=== PATIENT | male | born 1940 | race Caucasian/White ===

== ENCOUNTER 2018-04-29 18:34 | Inpatient (IN) | payer MEDICARE ==
[2018-04-29] MEDS ORDERED: NS 0.9% 1000 ML** 1,000 ML IV ONE (19:32)
--- OUTSIDE RECORDS SUMMARY | 2018-04-29 19:35 | XMS REPORT | Continuity of Care Document ---
:1940 External Reference #:[id number] Author Name Mary Jo Agarwal Care Team Providers Name Role Phone Ezra Velez MD Primary Care Physician Unavailable Payers Date Identification Numbers Payment Provider Subscriber Effective: 2009 Policy Number: [id number] Medicare Mateus Mccracken PayID: [id number] [address] [place] [address] Policy Number: [id number] [facility] Mateus Mccracken PayID: [id number] [address] [place] [address] Effective: 1989 Policy Number: [id number] [employer] Mateus Mccracken Expires: 2009 Group Number: [id number] [address] PayID: [id number] [place] [address] Advance Directives Description No Information Available Problems Date Description Provider Status Onset: 02/08/2008 Aneurysm of thoracic aorta Ezra Velez M.D.,FACHailey Active Onset: 02/08/2008 Impaired fasting glycaemia Ezra Velez M.D.,ZOHRAP Active Onset: 06/04/2016 Dyslipidemia Papa Serrano M.D. Active Note: 02/2015 - TC 203, HDL 66, LDL 125 TG 60 Onset: 09/05/2015 Carcinoma of prostate Papa Serrano M.D. Active Note: s/p prostatectomy Follows urology at [facility] Onset: 06/04/2016 Secondary erectile dysfunction Papa Serrano M.D. 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 Tobacco Use Start: Unknown End: Former Cigarette Smoker smoked for 35 years 1 1/2 Packs Daily Smoking Status Reviewed: 04/28/18 Former Cigarette Smoker smoked for 35 years 1 1/2 Packs Daily ETOH Use Currently consumes Red wine at night, alcohol 2 glasses Recreational Drug Use Denies Drug Use Tobacco Use Start: Unknown End: Patient is a former Unknown smoker Exercise Type/Frequency Exercises regularly 3-4/wk at gym Allergies, Adverse Reactions, Alerts Date Description Reaction Status Severity Comments 12/29/2006 Penicillin Active rash Medications Medication Date Status Form Strength Qnty SIG Indications Ordering Provider Aspirin Active Tablets 325mg 1 tab as Papa 017 needed [place], for pain M.D. Aleve Active 220mg 1 Unknown 000 po daily Am No Active Hx Unknown Medications 017 - 017 Ibuprofen Hx Tablets 600mg 90tabs tid 724.2 Josse 010 - Pachikara, M.DLizzie 017 Zithromax Hx Solution 500mg 7units 1 qd x 7 466.0 Ezra 008 - Rec days Penny Velez, M.DLizzie,FACP 009 Hycodan Hx Syrup 5-1.5/5 200cc 5cc qid 466.0 Ezra 008 - prn cough Penny Velez, Angélica,FACP 009 Metamucil Hx Powder 48.57% qhs Ezra Jones 007 - Penny Velez, Texture M.DLizzie,FACP 017 Toprol XL Hx Tablets ER 50mg 90tabs 1 tablet Erza 000 - 24HR po qday Penny Velez, Angélica,FACP 017 Lovastatin 0 Hx Tablets 40mg 180tab 2 tablets Ezra 000 - s po qhs Penny Velez, Angélica,FACP 017 Lamisil Hx Tablets 250mg 42tabs PO every Ezra 000 - day Penny Velez, Angélica,FACP 007 Immunizations CPT Code Status Date Vaccine Lot # [id number] Given 12/17/2017 Influenza Virus Vaccine, Quadrivalent, Split, Preservative Free [id number] Given 01/12/2017 Influenza Virus Vaccine, Quadrivalent, Split, Preservative Free [id number] Given 01/05/2007 Zoster (Zostavax) [id number] Given 01/05/2007 Zoster (Zostavax) [id number] Refused 04/16/2009 Influenza Virus 3Yrs & Over Vital Signs Date Vital Result Comment 04/28/2018 10:49am Height 67 inches 5'7" Weight 190.00 lb without shoes Heart Rate 56 /min BP Systolic Sitting 120 mmHg Lue reg cuff BP Diastolic Sitting 68 mmHg Lue reg cuff BP Systolic Standing 118 mmHg Lue reg cuff BP Diastolic Standing 62 mmHg Lue reg cuff Respiratory Rate 18 /min BMI (Body Mass Index) 29.8 kg/m2 Ejection Fraction 55-60% date 06/14/17 ECHO 04/13/2018 2:27pm Height 67 inches 5'7" BP Systolic 138 mmHg ure reg adult cuff BP Diastolic 80 mmHg ure reg adult cuff BP Systolic Sitting 144 mmHg ule reg adult BP Diastolic Sitting 80 mmHg ule reg adult BP Systolic Standing 140 mmHg ule reg adult BP Diastolic Standing 80 mmHg ule reg adult 10/11/2017 3:23pm Height 67 inches 5'7" Weight 190.25 lb w/shoes Heart Rate 58 /min BP Systolic Sitting 154 mmHg Lue reg cuff BP Diastolic Sitting 76 mmHg Lue reg cuff BMI (Body Mass Index) 29.8 kg/m2 08/23/2017 2:02pm Height 67 inches 5'7" Weight 187.25 lb Heart Rate 72 /min BP Systolic 156 mmHg BP Diastolic 104 mmHg Respiratory Rate 20 /min BMI (Body Mass Index) 29.3 kg/m2 Ejection Fraction 55-60 06-14-2017 06/06/2017 12:54pm Height 67 inches 5'7" Weight 186.50 lb Heart Rate 64 /min BP Systolic 140 mmHg BP Diastolic 104 mmHg BP Systolic Recheck 140 mmHg BP Diastolic Recheck 88 mmHg Body Temperature 97.8 F O2 % BldC Oximetry 94 % BMI (Body Mass Index) 29.2 kg/m2 06/04/2016 1:09pm Height 69 inches 5'9" Weight 191.38 lb Heart Rate 67 /min BP Systolic 140 mmHg BP Diastolic 80 mmHg Body Temperature 97.7 F O2 % BldC Oximetry 97 % BMI (Body Mass Index) 28.3 kg/m2 10/30/2009 2:40pm Heart Rate 70 /min BP Systolic Sitting 138 mmHg BP Diastolic Sitting 80 mmHg 06/11/2009 2:00pm Height 70 inches 5'10" Weight 204.00 lb Heart Rate 68 /min BP Systolic 110 mmHg BP Diastolic 80 mmHg BMI (Body Mass Index) 29.3 kg/m2 02/08/2008 10:49am Height 70 inches 5'10" Weight 202.00 lb Heart Rate 82 /min BP Systolic Sitting 136 mmHg BP Diastolic Sitting 70 mmHg BMI (Body Mass Index) 29.0 kg/m2 08/01/2007 11:30am Height 70 inches 5'10" Weight 202.00 lb Heart Rate 70 /min BP Systolic Sitting 120 mmHg BP Diastolic Sitting 72 mmHg BMI (Body Mass Index) 29.0 kg/m2 01/05/2007 10:00am Height 70 inches 5'10" Weight 205.00 lb Heart Rate 76 /min BP Systolic Sitting 100 mmHg BP Diastolic Sitting 78 mmHg Body Temperature 98.1 F BMI (Body Mass Index) 29.4 kg/m2 Results Test Date Facility Test Result H/L Range Note Pre Cath Panel 04/28/2018 [facility] Partial Thrombo <pending> [address] [address] [phone] Laboratory test 04/14/2018 [facility] Magnesium 2.0 mg/dL N 1.9-2.7 1, [address] [place] [address] [phone] Laboratory test 04/14/2018 [facility] TSH (Thyroid 2.22 N 0.34 -5.60 [address] Stim Horm) mcIU/[place] [address] [phone] Free T4 (Free Thyroxine) 0.77 ng/dL N 0.61-1.12 4 T3 Free 3.50 pg/mL N 2.5-3.9 5 Basic Metabolic Panel 04/14/2018 [facility] Sodium 139 mmol/L N 135-145 [address] [place] [address] [phone] Potassium 4.7 mmol/L N 3.5-5.0 Chloride 105 mmol/L N 101-111 Co2 Carbon Dioxide 27 mmol/L N 22-32 Anion Gap 7 mmol/L N 2-11 Glucose 90 mg/dL N 70-100 Blood Urea Nitrogen 17 mg/dL N 6-24 Creatinine 0.88 mg/dL N 0.67-1.17 BUN/Creatinine Ratio 19.3 N 8-20 Calcium 9.8 mg/dL N 8.6-10.3 Egfr Non- 84.2 >60 Egfr 101.9 >60 6 Laboratory test 02/06/2018 [facility] PSA Screening < 0.008 N 0-4.000 [address] ng/[place] [address] [phone] Laboratory test 08/08/2017 [facility] PSA Screening < 0.008 N 0-4.000 [address] ng/[place] [address] [phone] Lipid Profile 06/08/2017 [facility] Triglycerides 55 mg/dL 9, 10 (Trig/Chol/HDL) [address] [place] [address] [phone] Cholesterol 198 mg/dL 11 HDL Cholesterol 72.4 mg/dL 12 LDL Cholesterol 115 mg/dL 13 Basic Metabolic Panel 06/08/2017 [facility] Sodium 140 mmol/L N 139-[address] [place] [address] [phone] Potassium 4.3 mmol/L N 3.5-5.0 Chloride 107 mmol/L N 101-111 Co2 Carbon Dioxide 29 mmol/L N 22-32 Anion Gap 4 mmol/L N 2-11 Glucose 109 mg/dL High 70-100 Blood Urea Nitrogen 18 mg/dL N 6-24 Creatinine 0.91 mg/dL N 0.67-1.17 BUN/Creatinine Ratio 19.8 N 8-20 Calcium 9.2 mg/dL N 8.6-10.3 Egfr Non- 81.2 >60 Egfr 104.5 >60 14 Laboratory test 06/08/2017 [facility] TSH (Thyroid 2.16 mcIU/mL N 0.34-5.60 [address] Stim Horm) [place] [address] [phone] Free T4 (Free Thyroxine) 0.76 ng/dL N 0.61-1.12 16 Laboratory test 02/03/2017 [facility] PSA Screening < 0.008 N 0-4.[address] ng/[place] [address] [phone] Laboratory test 06/28/2016 [facility] PSA Screening 0.583 ng/mL N 0-4.[address] [place] [address] [phone] Lipid Profile 06/07/2016 [facility] Triglycerides 57 mg/dL N 19 (Trig/Chol/HDL) [address] [place] [address] [phone] Cholesterol 199 mg/dL N 20 HDL Cholesterol 67.8 mg/dL N 21 LDL Cholesterol 120 mg/dL N 22 Liver Function 06/07/2016 [facility] Total Protein 6.5 g/dL N 6.4-8.[address] [place] [address] [phone] Albumin 4.1 g/dL N 3.2-5.2 Globulin 2.4 g/dL N 2-4 Albumin/Globulin Ratio 1.7 N 1-3 Total Bilirubin 1.00 mg/dL N 0.2-1.0 Direct Bilirubin 0.20 mg/dL High 0.03-0.18 Indirect Bilirubin 0.8 mg/dL N 0.3-1.0 Alkaline Phosphatase 37 U/L N 34-104 Alt 15 U/L N 7-52 Ast 18 U/L N 13-39 Laboratory test 06/07/2016 [facility] Hemoglobin A1c 5.2 % N Less than [address] (Glyco HGB) 6.0 [place] [address] [phone] Basic Metabolic 06/07/2016 [facility] Sodium 138 N 133-[address] mmol/[place] [address] [phone] Potassium 4.3 mmol/L N 3.5-5.0 Chloride 105 mmol/L N 101-111 Co2 Carbon Dioxide 27 mmol/L N 22-32 Anion Gap 6 mmol/L N 2-11 Glucose 101 mg/dL High 70-100 Blood Urea Nitrogen 20 mg/dL N 6-24 Creatinine 0.96 mg/dL N 0.67-1.17 BUN/Creatinine Ratio 20.8 High 8-20 Calcium 9.3 mg/dL N 8.6-10.3 Egfr Non- 76.6 N >60 Egfr 98.5 N >60 24 Lipid Profile 06/05/2009 [facility] Triglyceride 52 mg/dL 40- 200 (Trig/Chol/HDL) [address] [place] [address] [phone] Cholesterol 157 mg/dL Less Than 200 25 High Density Lipoprotein 59 mg/dL 40-60 26 Cholesterol/HDL Ratio 2.66 AVERAGE 1-4.97 Low Density Lipoprotein 88 mg/dL Less Than 100 27 Liver Function 06/05/2009 [facility] Total Protein 5.7 GM/DL Low 6.2-8.1 Panel [address] [place] [address] [phone] Albumin 3.5 GM/DL 3.2-5.2 Globulin 2.2 GM/DL 2-4 Albumin/Globulin Ratio 1.6 1-3 Bilirubin Total 0.7 mg/dL 0.4-1.5 28 Bilirubin Direct 0.1 mg/dL 0.1-0.5 Indirect Bilirubin 0.6 mg/dL 0.1-0.75 Alkaline Phosphatase 34 U/L Low 39-117 Alt (SGPT) 24 U/L 17-63 Ast (Sgot) 24 U/L 12-42 Laboratory test 06/05/2009 [facility] CPK (Creatine 100 U/L 0 -200 finding [facility] Kinase) [place] [address] [phone] Laboratory test 06/05/2009 [facility] Hemoglobin A1c 5.6 % Less Than 29 finding 101 [facility] 6.0 [place] [address] [phone] Urinalysis 06/05/2009 [facility] Ua Color SUZANNE Yellow [address] [place] [address] [phone] Appearance-Urine CLEAR Clear Specific [place]-Ur 1.024 1.010-1.030 Esterase-Urine NEGATIVE Negative Nitrite NEGATIVE Negative [id number] NEGATIVE Negative Protein-Urine NEGATIVE Negative PH-Urine 6.0 5-9 Blood-Urine NEGATIVE Negative Ketones-Urine NEGATIVE Negative Bilirubin-Ur NEGATIVE Negative Glucose-Urine NEGATIVE Negative Lipid Profile 02/06/2008 [facility] Triglyceride 127 mg/dL 40 -200 (Trig/Chol/HDL) [address] [place] [address] [phone] Cholesterol 210 mg/dL High Less Than 200 30 High Density Lipoprotein 69 mg/dL High 40-60 31 Cholesterol/HDL Ratio 3.04 AVERAGE 1-4.97 Low Density Lipoprotein 116 mg/dL High Less Than 100 32 Laboratory test 02/06/2008 [facility] CPK (Creatine 192 U/L 0 -[address] Kinase) [place] [address] [phone] PSA Screening 1.27 NG/ML 0-4 33 Liver Function 02/06/2008 [facility] Total Protein 6.3 GM/DL 6.2-8.1 Panel [address] [place] [address] [phone] Albumin 3.9 GM/DL 3.2-5.2 Globulin 2.4 GM/DL 2-4 Albumin/Globulin Ratio 1.6 1-3 Bilirubin Total 0.7 mg/dL 0.4-1.5 Bilirubin Direct < 0.1 mg/dL Low 0.1-0.5 Indirect Bilirubin (SEE NOTE) mg/dL 0.1-0.75 34 Alkaline Phosphatase 33 U/L Low 39-117 Alt (SGPT) 36 U/L 17-63 Ast (Sgot) 32 U/L 12-42 Basic Metabolic Panel 02/06/2008 [facility] Sodium 138 mmol/L 135-[address] [place] [address] [phone] Potassium 4.1 mmol/L 3.5-5.0 Chloride 106 mmol/L 101-111 Co2 (Carbon Dioxide) 27.0 mmol/L 22-32 Anion Gap 5.0 mmol/L 2-11 35 Glucose 92 mg/dL 70-100 36 BUN 17 mg/dL 6-24 Creatinine 0.92 mg/dL 0.50-1.40 One Over Creatinine 1.00 BUN/Creatinine Ratio 18.5 8-20 Calcium 9.3 mg/dL 8.1-9.9 37 Laboratory test 04/21/2007 [employer] Throat negative finding Laboratory test 12/29/2006 [facility] Hemoglobin A1c 5.6 % < 6.0 [address] [place] [address] [phone] Laboratory test 12/29/2006 [facility] PSA Screening 1.41 NG/ML 0-4 [address] [place] [address] [phone] Lipid Profile 12/29/2006 [facility] Cholesterol/HDL 2.95 AVERAGE 1-4.97 (Trig/Chol/HDL) [address] [place] [address] [phone] Cholesterol 174 mg/dL Less Than 200 40 Triglyceride 72 mg/dL 40-200 High Density Lipoprotein 59 mg/dL 40-60 Low Density Lipoprotein 101 mg/dL High Less Than 100 41 Liver Function 12/29/2006 [facility] Albumin/Globulin Ratio 1.4 1-3 Panel [address] [place] [address] [phone] Albumin 4.0 GM/DL 3.2-5.2 Alkaline Phosphatase 39 U/L 39-117 Alt (SGPT) 27 U/L 17-63 Ast (Sgot) 25 U/L 12-42 Bilirubin Direct 0.1 mg/dL 0.1-0.5 Globulin 2.9 GM/DL 2-4 Indirect Bilirubin 1.1 mg/dL High 0.1-0.75 Bilirubin Total 1.2 mg/dL 0.4-1.5 Total Protein 6.9 GM/DL 6.2-8.1 Basic Metabolic 12/29/2006 [facility] One Over Creatinine 0.83 Panel [address] [place] [address] [phone] Anion Gap 5.0 mmol/L 2-11 42 BUN 19 mg/dL 6-24 Calcium 9.5 mg/dL 8.7-10.2 Chloride 105 mmol/L 101-111 Co2 (Carbon Dioxide) 29.0 mmol/L 22-32 Glucose 115 mg/dL High 70-105 Potassium 4.2 mmol/L 3.5-5.0 Sodium 139 mmol/L 135-145 BUN/Creatinine Ratio 15.8 8-20 Creatinine 1.2 mg/dL 0.5-1.4 CBC W/ Electronic 12/29/2006 [facility] White Blood 4.9 CUMM 4.8-10.8 [address] [place] [address] [phone] Abs Basophils 0 0-0.2 Abs Eosinophils 0.3 0-0.6 Absolute Neutrophil Count 2.6 1.5-7.7 Abs Lymphs 1.5 1.0-4.8 Abs Mononuclear 0.4 0-0.8 Basophil % 0.7 % 0-2 Hematocrit 42 % 42-52 Hemoglobin 14.6 g/dL 14.0-18.0 Eosinophil % 5.5 % 0-6 Gran % 54.1 % 38-83 Lymph % 30.9 % 20-45 Mean Corpuscular HGB Cone 35 g/dL 32-36 Mean Corpuscular Hemoglob 35 pg High 27-31 Mean Corpuscular Volume 99 um3 High 80-94 Mean Platelet Volume 8.6 um3 7.4-10.4 Mononuclear % 8.8 % 1-9 Platelet Count 272 CUMM 150-450 Red Cell Count 4.20 CUMM Low 4.6-6.2 Redcell Distribution WDTH 12 % 10.5-15 1 Copy Result to: SHILO VELEZ ([id number]) 2 Copy Result to: SHILO VELEZ ([id number]) 3 Copy Result to: SHILO VELEZ ([id number]) 4 Copy Result to: SHILO VELEZ ([id number]) 5 Copy Result to: SHILO VELEZ ([id number]) 6 Because ethnic data is not always readily available, this report includes an eGFR for both -Americans and non- Americans. The National Kidney Disease Education Program (NKDEP) does not endorse the use of the MDRD equation for patients that are not between the ages of 18 and 70, are , have extremes of body size, muscle mass, or nutritional status, or are non- or non-. According to the National Kidney Foundation, irrespective of diagnosis, the stage of the disease is based on the level of kidney function: Stage Description GFR(mL/min/1.73 m(2)) 1 Kidney damage with normal or decreased GFR 90 2 Kidney damage with mild decrease in GFR 60-89 3 Moderate decrease in GFR 30-59 4 Severe decrease in GFR 15-29 5 Kidney failure <15 (or dialysis) 7 Serum levels of PSA measured using the [employer] DXI Hybritech immunoassay should not be interpreted as absolute evidence of the presence or absence of disease. The PSA value should be used in conjunction with other pertinent clinical diagnostic procedures. A PSA value in the range of 0.1 to 0.6 ng/ml is indeterminate if being used as an indicator of recurrent or residual disease. The values obtained with different assay methods or kits cannot be used interchangeably. 8 Serum levels of PSA measured using the [employer] DXI Hybritech immunoassay should not be interpreted as absolute evidence of the presence or absence of disease. The PSA value should be used in conjunction with other pertinent clinical diagnostic procedures. A PSA value in the range of 0.1 to 0.6 ng/ml is indeterminate if being used as an indicator of recurrent or residual disease. The values obtained with different assay methods or kits cannot be used interchangeably. 9 FASTING 10 Desirable: <150 Borderline High: 150-199 High: 200-499 Very High: >500 11 Desirable: <200 Borderline High: 200-239 High: >239 12 Low: <40 Desirable: 40-60 High: >60 13 Desirable: <100 Near Optimal: 100-129 Borderline High: 130-159 High: 160-189 Very High: >189 14 Because ethnic data is not always readily available, this report includes an eGFR for both -Americans and non- Americans. The National Kidney Disease Education Program (NKDEP) does not endorse the use of the MDRD equation for patients that are not between the ages of 18 and 70, are , have extremes of body size, muscle mass, or nutritional status, or are non- or non-. According to the National Kidney Foundation, irrespective of diagnosis, the stage of the disease is based on the level of kidney function: Stage Description GFR(mL/min/1.73 m(2)) 1 Kidney damage with normal or decreased GFR 90 2 Kidney damage with mild decrease in GFR 60-89 3 Moderate decrease in GFR 30-59 4 Severe decrease in GFR 15-29 5 Kidney failure <15 (or dialysis) 15 FASTING 16 FASTING 17 Serum levels of PSA measured using the Speek DXI Hybritech immunoassay should not be interpreted as absolute evidence of the presence or absence of disease. The PSA value should be used in conjunction with other pertinent clinical diagnostic procedures. A PSA value in the range of 0.1 to 0.6 ng/ml is indeterminate if being used as an indicator of recurrent or residual disease. The values obtained with different assay methods or kits cannot be used interchangeably. 18 Serum levels of PSA measured using the [employer] DXI Hybritech immunoassay should not be interpreted as absolute evidence of the presence or absence of disease. The PSA value should be used in conjunction with other pertinent clinical diagnostic procedures. A PSA value in the range of 0.1 to 0.6 ng/ml is indeterminate if being used as an indicator of recurrent or residual disease. The values obtained with different assay methods or kits cannot be used interchangeably. 19 Desirable <150 Borderline high 150-199 High 200-499 Very High >500 20 Desirable <200 Borderline high 200-239 High >239 21 Low <40 Desirable: 40-60 High: >60 22 Desirable: <100 mg/dL Near Optimal: 100-129 mg/dL Borderline High: 130-159 mg/dL High: 160-189 mg/dL Very High: >189 mg/dL 23 Therapeutic target for the treatment of diabetes Mellitus patients is <7% HBA1C, and in selective patients <6.0%.Please refer to [place] [employer] Diabetic care guidelines for further information. 24 Because ethnic data is not always readily available, this report includes an eGFR for both -Americans and non- Americans. The National Kidney Disease Education Program (NKDEP) does not endorse the use of the MDRD equation for patients that are not between the ages of 18 and 70, are , have extremes of body size, muscle mass, or nutritional status, or are non- or non-. According to the National Kidney Foundation, irrespective of diagnosis, the stage of the disease is based on the level of kidney function: Stage Description GFR(mL/min/1.73 m(2)) 1 Kidney damage with normal or decreased GFR 90 2 Kidney damage with mild decrease in GFR 60-89 3 Moderate decrease in GFR 30-59 4 Severe decrease in GFR 15-29 5 Kidney failure <15 (or dialysis) 25 CHOLESTEROL INTERPRETATION: Desirable: Less than 200 MG/DL Borderline-High Risk: 200-239 MG/DL High-Risk: 240 MG/DL and over 26 HDL INTERPRETATION: Undesirable: High Risk: Less than 40 MG/DL Desirable: Low Risk: Greater than 60 MG/DL 27 LDL INTERPRETATION: Low Risk Optimal Level: LDL Less than 100 MG/DL Near or Above Optimal: LDL 100-129 MG/DL Borderline High Risk: LDL 130-159 MG/DL High Risk: LDL 160-189 MG/DL Very High Risk: LDL Greater than 189 MG/DL 28 A metabolite of Naproxen, O-desmethylnaproxen, has been shown to interfere with the Jendrassik-Chisholm method for measuring total bilirubin. Samples from patients who have taken Naproxen have shown spurious elevation in total bilirubin levels. 29 THERAPEUTIC TARGET FOR THE TREATMENT OF DIABETES MELLITUS PATIENTS IS <7% HBA1C, AND IN SELECTIVE PATIENTS <6.0%. PLEASE REFER TO [place] [employer]ATION DIABETIC CARE GUIDELINES FOR FURTHER INFORMATION. 30 CHOLESTEROL INTERPRETATION: Desirable: Less than 200 MG/DL Borderline-High Risk: 200-239 MG/DL High-Risk: 240 MG/DL and over 31 HDL INTERPRETATION: Undesirable: High Risk: Less than 40 MG/DL Desirable: Low Risk: Greater than 60 MG/DL 32 LDL INTERPRETATION: Low Risk Optimal Level: LDL Less than 100 MG/DL Near or Above Optimal: LDL 100-129 MG/DL Borderline High Risk: LDL 130-159 MG/DL High Risk: LDL 160-189 MG/DL Very High Risk: LDL Greater than 189 MG/DL 33 * SERUM LEVELS OF PSA MEASURED USING THE [employer] ACCESS HYBRITECH IMMUNOASSAY SHOULD NOT BE INTERPRETED ABSOLUTE EVIDENCE OF THE PRESENCE OR ABSENCE OF DISEASE. THE PSA VALUE SHOULD BE USED IN CONJUNCTION WITH OTHER PERTINENT CLINICAL DIAGNOSTIC PROCEDURES. 34 UNABLE TO CALCULATE IND.BILI D.BILI IS <0.1 35 Anion gap measurement may be of limited value in the presence of any alkalosis, especially in a combined acid base disorder. . 36 Note change in reference range as of 10/26/07. The change was based on recommendations from the [place] [employer]. 37 Please note change in reference range effective 07 . 38 THERAPEUTIC TARGET FOR THE TREATMENT OF DIABETES MELLITUS PATIENTS IS <7% HBA1C, AND IN SELECTIVE PATIENTS <6.0%. PLEASE REFER TO [place] [employer] DIABETIC CARE GUIDELINES FOR FURTHER INFORMATION. 39 * SERUM LEVELS OF PSA MEASURED USING THE DUYEN HOLGER ACCESS HYBRITECH IMMUNOASSAY SHOULD NOT BE INTERPRETED ABSOLUTE EVIDENCE OF THE PRESENCE OR ABSENCE OF DISEASE. THE PSA VALUE SHOULD BE USED IN CONJUNCTION WITH OTHER PERTINENT CLINICAL DIAGNOSTIC PROCEDURES. 40 Classification: Desirable . 41 CALCULATED LDL APPROXIMATES THE VALUE OF A DIRECT LDL MEASUREMENT. Classification: Near or above optimal . 42 Anion gap measurement may be of limited value in the presence of any alkalosis, especially in a combined acid base disorder. . 43 COMMENTS? N Procedures Date Code Description Status 04/13/2018 15980 EKG Tracing & Interpretation Completed 08/23/2017 [id number] EKG Tracing & Interpretation Completed 06/14/2017 26878 ECHO Transthoracic, Real-Time 2D With Doppler And Color Completed Flow 06/14/2017 [id number] ECHO Transthoracic, Real-Time 2D With Doppler And Color Completed Flow 07/02/2013 [id number] Colonoscopy Completed 03/04/2008 45692 Echocardiogram Completed 03/07/2003 [id number] Colonoscopy Completed Encounters Type Date Location Provider Dx Diagnosis Office Visit 04/13/2018 [facility] Mica Rondon, G47.33 Obstructive sleep 2:30p [employer] SUPER[employer]OR apnea (adult) (pediatric) R00.2 Palpitations I35.1 Nonrheumatic aortic (valve) insufficiency I77.810 Thoracic aortic ectasia Office Visit 10/11/2017 3:40p [facility] Penny Soria I71.9 Aortic aneurysm Cardiology Angélica Best of unspecified site, without rupture I35.1 Nonrheumatic aortic (valve) insufficiency Office Visit 08/23/2017 2:30p [facility] Penny Gayle. I71.9 Aortic aneurysm Cardiology Angélica Best of unspecified site, without rupture I35.1 Nonrheumatic aortic (valve) insufficiency R94.31 Abnormal electrocardiogram [ECG] [EKG] R03.0 Elevated blood-pressure reading, w/o diagnosis of htn Office Visit 06/06/2017 1:00p [facility] Internal Jung Oglesby, Z00.01 Encounter for Medicine - TERMINAL OPERATIONS SUPERVISOR general adult Crawford medical exam w abnormal findings Z13.220 Encounter for screening for lipoid disorders Z13.1 Encounter for screening for diabetes mellitus E04.9 Nontoxic goiter, unspecified R03.0 Elevated blood-pressure reading, w/o diagnosis of htn Office Visit 10/30/2009 2:40p DO Not Use Corporate Security Officer Josse Hope, 724.2 [facility] 06/11/2009 2:00p DO Not Use Corporate Security Officer Ezra Francis V70.0 Examination AT [facility] Angélica Velez,[facility] General Medical Routine AT [facility] 790.21 Impaired Fasting Glucose 272.4 Hyperlipidemia Other Unspec 441.2 Aneurysm Thoracic W/O Rupture Office Visit 02/08/2008 10:40a DO Not Use Corporate Security Officer Ezra Francis V70.0 Examination AT [facility] Angélica Velez,[facility] General Medical Routine AT Health Care Facility 441.2 Aneurysm Thoracic W/O Rupture 272.4 Hyperlipidemia Other Unspec 790.21 Impaired Fasting Glucose 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 Office Visit 08/01/2007 DO Not Use Corporate Security Officer Viky Brewster PA 466.0 Bronchitis Acute 11:30a AT [facility] Office Visit 01/05/2007 DO Not Use Corporate Security Officer Ezra Velez, V70.0 Examination 10:00a AT [facility] Angélica,[facility] General Medical Routine AT Health Care [facility] V70.9 Examination General Medical Unspec 780.57 Unspecified Sleep Apnea 272.4 Hyperlipidemia Other Unspec 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 at [facility] AT [facility]05/09/2018 8:00 am - Filippo Sullivan M.D. at [facility]06/28/2018 10:00 am - Dacia Cardenas MD at [facility]05/10/2018 11:30 am - Penny Best M.D. at [facility]04/28/2018 - Filippo Sullivan M.D.I49.5 Sick sinus syndromeNew Orders:Implant Pacemaker, Ordered: 04/28/18Follow up:1 week after wzbxzP99.1 Supraventricular tachycardia
--- OUTSIDE RECORDS SUMMARY | 2018-04-29 19:35 | XMS REPORT | Continuity of Care Document ---
:1940 External Reference #:[id number] Author Name Ashley Llanes Care Team Providers Name Role Phone Ezra Velez MD Primary Care Physician Unavailable Payers Date Identification Numbers Payment Provider Subscriber Effective: 2009 Policy Number: [id number] Medicare Mateus Mccracken PayID: [id number] [address] [place] [address] Policy Number: [id number] [facility] Mateus Mccracken PayID: [id number] [address] [place] [address] Effective: 1989 Policy Number: [id number] [employer] Mateus Mccracken Expires: 2009 Group Number: [id number] [address] PayID: [id number] [place] [address] Advance Directives Description No Information Available Problems Date Description Provider Status Onset: 02/08/2008 Aneurysm of thoracic aorta Ezra Velez M.D.,MISTY Active Onset: 02/08/2008 Impaired fasting glycaemia Ezra Velez M.D.,ZOHRAP Active Onset: 06/04/2016 Dyslipidemia Papa Serrano M.D. Active Note: 02/2015 - TC 203, HDL 66, LDL 125 TG 60 Onset: 09/05/2015 Carcinoma of prostate Papa Serrano M.D. Active Note: s/p prostatectomy Follows urology at [facility] Onset: 06/04/2016 Secondary erectile dysfunction Papa Serrano [...] 1 1/2 Packs Daily Smoking Status Reviewed: 04/13/18 Former Cigarette Smoker smoked for 35 years [...] 325mg 1 tab as Papa 017 needed [place], for pain M.D. No Active Hx Unknown Medications 017 - 017 Ibuprofen Hx Tablets 600mg 90tabs tid 724.2 Josse 010 - Pachikara, M.DLizzie 017 Zithromax Hx Solution 500mg 7units 1 qd x 7 466.0 Ezra 008 - Rec days Penny Velez, Angélica,FACP 009 Hycodan Hx Syrup 5-1.5/5 200cc 5cc qid 466.0 Ezra 008 - prn cough Penny Velez, Angélica,FACP 009 Metamucil Hx Powder 48.57% qhs Ezra Jones 007 - Penny Velez, Texture MYana,FACP 017 Toprol XL Hx Tablets ER 50mg 90tabs 1 tablet Ezra 000 - 24HR po qday Penny Velez, Angélica,FACP 017 Lovastatin Hx Tablets 40mg 180tab 2 tablets Ezra 000 - s po qhs Penny Velez, Angélica,FACP 017 Lamisil Hx Tablets 250mg 42tabs PO every Ezra 000 - day Penny Velez, Angélica,FACP 007 Immunizations CPT Code Status Date Vaccine Lot # [id number] Given 12/17/2017 Influenza Virus Vaccine, Quadrivalent, Split, Preservative Free 42963 Given 01/12/2017 Influenza Virus Vaccine, Quadrivalent, Split, Preservative Free 30718 Given 01/05/2007 Zoster (Zostavax) [id number] Given 01/05/2007 Zoster (Zostavax) [id number] Refused 04/16/2009 Influenza Virus 3Yrs & Over Vital Signs Date Vital Result Comment 04/13/2018 2:27pm Height 67 inches 5'7" BP [...] Date Facility Test Result H/L Range Note Laboratory test 02/06/2018 [facility] PSA Screening < 0.008 N 0-4.000 [address] ng/[place] [address] [phone] Laboratory test 08/08/2017 [facility] PSA Screening < 0.008 N 0-4.000 [address] ng/[place] [address] [phone] Lipid Profile 06/08/2017 [facility] Triglycerides 55 mg/dL 3, 4 (Trig/Chol/HDL) [address] [place] [address] [phone] Cholesterol 198 mg/dL 5 HDL Cholesterol 72.4 mg/dL 6 LDL Cholesterol 115 mg/dL 7 Basic Metabolic Panel 06/08/2017 [facility] Sodium 140 mmol/L N 139-[address] [place] [address] [phone] Potassium 4.3 mmol/L N 3.5-5.0 Chloride 107 mmol/L N 101-111 Co2 Carbon Dioxide 29 mmol/L N 22-32 Anion Gap 4 mmol/L N 2-11 Glucose 109 mg/dL High 70-100 Blood Urea Nitrogen 18 mg/dL N 6-24 Creatinine 0.91 mg/dL N 0.67-1.17 BUN/Creatinine Ratio 19.8 N 8-20 Calcium 9.2 mg/dL N 8.6-10.3 Egfr Non- 81.2 >60 Egfr 104.5 >60 8 Laboratory test 06/08/2017 [facility] TSH (Thyroid 2.16 mcIU/mL N 0.34-5.60 [address] Stim Horm) [place] [address] [phone] Free T4 (Free Thyroxine) 0.76 ng/dL N 0.61-1.12 10 Laboratory test 02/03/2017 [facility] PSA Screening < 0.008 N 0-4.000 [address] ng/[place] [address] [phone] Laboratory test 06/28/2016 [facility] PSA Screening 0.583 ng/mL N 0-4.000 [address] [place] [address] [phone] Lipid Profile 06/07/2016 [facility] Triglycerides 57 mg/dL N 13 (Trig/Chol/HDL) [address] [place] [address] [phone] Cholesterol 199 mg/dL N 14 HDL Cholesterol 67.8 mg/dL N 15 LDL Cholesterol 120 mg/dL N 16 Liver Function 06/07/2016 [facility] Total Protein 6.5 g/dL N 6.4-8.[address] [place] [address] [phone] Albumin 4.1 g/dL N 3.2-5.2 Globulin 2.4 g/dL N 2-4 Albumin/Globulin Ratio 1.7 N 1-3 Total Bilirubin 1.00 mg/dL N 0.2-1.0 Direct Bilirubin 0.20 mg/dL High 0.03-0.18 Indirect Bilirubin 0.8 mg/dL N 0.3-1.0 Alkaline Phosphatase 37 U/L N 34-104 Alt 15 U/L N 7-52 Ast 18 U/L N 13-39 Laboratory test 06/07/2016 [facility] Hemoglobin A1c 5.2 % N Less than [address] (Glyco HGB) 6.0 [place] [address] [phone] Basic Metabolic 06/07/2016 [facility] Sodium 138 N 133-[address] mmol/[place] [address] [phone] Potassium 4.3 mmol/L N 3.5-5.0 Chloride 105 mmol/L N 101-111 Co2 Carbon Dioxide 27 mmol/L N 22-32 Anion Gap 6 mmol/L N 2-11 Glucose 101 mg/dL High 70-100 Blood Urea Nitrogen 20 mg/dL N 6-24 Creatinine 0.96 mg/dL N 0.67-1.17 BUN/Creatinine Ratio 20.8 High 8-20 Calcium 9.3 mg/dL N 8.6-10.3 Egfr Non- 76.6 N >60 Egfr 98.5 N >60 18 Lipid Profile 06/05/2009 [facility] Triglyceride 52 mg/dL 40- 200 (Trig/Chol/HDL) [address] [place] [address] [phone] Cholesterol 157 mg/dL Less Than 200 19 High Density Lipoprotein 59 mg/dL 40-60 20 Cholesterol/HDL Ratio 2.66 AVERAGE 1-4.97 Low Density Lipoprotein 88 mg/dL Less Than 100 21 Liver Function 06/05/2009 [facility] Total Protein 5.7 GM/DL Low 6.2-8.[address] [place] [address] [phone] Albumin 3.5 GM/DL 3.2-5.2 Globulin 2.2 GM/DL 2-4 Albumin/Globulin Ratio 1.6 1-3 Bilirubin Total 0.7 mg/dL 0.4-1.5 22 Bilirubin Direct 0.1 mg/dL 0.1-0.5 Indirect Bilirubin 0.6 mg/dL 0.1-0.75 Alkaline Phosphatase 34 U/L Low 39-117 Alt (SGPT) 24 U/L 17-63 Ast (Sgot) 24 U/L 12-42 Laboratory test 06/05/2009 [facility] CPK (Creatine 100 U/L 0 -[address] Kinase) [place] [address] [phone] Laboratory test 06/05/2009 [facility] Hemoglobin A1c 5.6 % Less Than [address] 6.0 [place] [address] [phone] Urinalysis 06/05/2009 [facility] Ua Color SUZANNE Yellow [address] [place] [address] [phone] Appearance-Urine CLEAR Clear Specific [place]-Ur 1.024 1.010-1.030 Esterase-Urine NEGATIVE Negative Nitrite NEGATIVE Negative Chvqbcicslht-Tx-XZP NEGATIVE Negative Protein-Urine NEGATIVE Negative PH-Urine 6.0 5-9 Blood-Urine NEGATIVE Negative Ketones-Urine NEGATIVE Negative Bilirubin-Ur NEGATIVE Negative Glucose-Urine NEGATIVE Negative Lipid Profile 02/06/2008 [facility] Triglyceride 127 mg/dL 40 -200 (Trig/Chol/HDL) [address] [place] [address] [phone] Cholesterol 210 mg/dL High Less Than 200 24 High Density Lipoprotein 69 mg/dL High 40-60 25 Cholesterol/HDL Ratio 3.04 AVERAGE 1-4.97 Low Density Lipoprotein 116 mg/dL High Less Than 100 26 Basic Metabolic Panel 02/06/2008 [facility] Sodium 138 mmol/L 135-145 [address] [place] [address] [phone] Potassium 4.1 mmol/L 3.5-5.0 Chloride 106 mmol/L 101-111 Co2 (Carbon Dioxide) 27.0 mmol/L 22-32 Anion Gap 5.0 mmol/L 2-11 27 Glucose 92 mg/dL 70-100 28 BUN 17 mg/dL 6-24 Creatinine 0.92 mg/dL 0.50-1.40 One Over Creatinine 1.00 BUN/Creatinine Ratio 18.5 8-20 Calcium 9.3 mg/dL 8.1-9.9 29 Liver Function 02/06/2008 [facility] Total Protein 6.3 GM/DL 6.2-8.1 Panel [address] [place] [address] [phone] Albumin 3.9 GM/DL 3.2-5.2 Globulin 2.4 GM/DL 2-4 Albumin/Globulin Ratio 1.6 1-3 Bilirubin Total 0.7 mg/dL 0.4-1.5 Bilirubin Direct < 0.1 mg/dL Low 0.1-0.5 Indirect Bilirubin (SEE NOTE) mg/dL 0.1-0.75 30 Alkaline Phosphatase 33 U/L Low 39-117 Alt (SGPT) 36 U/L 17-63 Ast (Sgot) 32 U/L 12-42 Laboratory test 02/06/2008 [facility] CPK (Creatine 192 U/L 0 -[address] Kinase) [place] [address] [phone] PSA Screening 1.27 NG/ML 0-4 31 Laboratory test 04/21/2007 [facility] House Culture Throat negative finding Laboratory test 12/29/2006 [facility] Hemoglobin A1c 5.6 % < 6.0 [address] [place] [address] [phone] Laboratory test 12/29/2006 [facility] PSA Screening 1.41 NG/ML 0-4 33 finding [address] [place] [address] [phone] Lipid Profile 12/29/2006 [facility] Cholesterol/HDL 2.95 AVERAGE 1-4.97 (Trig/Chol/HDL) [address] [place] [address] [phone] Cholesterol 174 mg/dL Less Than 200 34 Triglyceride 72 mg/dL 40-200 High Density Lipoprotein 59 mg/dL 40-60 Low Density Lipoprotein 101 mg/dL High Less Than 100 35 Liver Function 12/29/2006 [facility] Albumin/Globulin Ratio 1.4 1-3 Panel [address] [place] [address] [phone] Albumin 4.0 GM/DL 3.2-5.2 Alkaline Phosphatase 39 U/L 39-117 Alt (SGPT) 27 U/L 17-63 Ast (Sgot) 25 U/L 12-42 Bilirubin Direct 0.1 mg/dL 0.1-0.5 Globulin 2.9 GM/DL 2-4 Indirect Bilirubin 1.1 mg/dL High 0.1-0.75 Bilirubin Total 1.2 mg/dL 0.4-1.5 Total Protein 6.9 GM/DL 6.2-8.1 Basic Metabolic 12/29/2006 [facility] One Over Creatinine 0.[address] [place] [address] [phone] Anion Gap 5.0 mmol/L 2-11 36 BUN 19 mg/dL 6-24 Calcium 9.5 mg/dL 8.7-10.2 Chloride 105 mmol/L 101-111 Co2 (Carbon Dioxide) 29.0 mmol/L 22-32 Glucose 115 mg/dL High 70-105 Potassium 4.2 mmol/L 3.5-5.0 Sodium 139 mmol/L 135-145 BUN/Creatinine Ratio 15.8 8-20 Creatinine 1.2 mg/dL 0.5-1.4 CBC W/ Electronic 12/29/2006 [facility] White Blood 4.9 CUMM 4.8-10.8 [address] [place] [address] [phone] Abs Basophils 0 0-0.2 Abs Eosinophils 0.3 [...] Redcell Distribution WDTH 12 % 10.5-15 1 Serum levels of PSA measured using the [employer] DXI Hybritech immunoassay should not be interpreted [...] methods or kits cannot be used interchangeably. 2 Serum levels of PSA measured using the [employer] DXI Hybritech immunoassay should not be interpreted [...] methods or kits cannot be used interchangeably. 3 FASTING 4 Desirable: <150 Borderline High: 150-199 High: 200-499 Very High: >500 5 Desirable: <200 Borderline High: 200-239 High: >239 6 Low: <40 Desirable: 40-60 High: >60 7 Desirable: <100 Near Optimal: 100-129 Borderline High: 130-159 High: 160-189 Very High: >189 8 Because ethnic data is not always readily [...] 15-29 5 Kidney failure <15 (or dialysis) 9 FASTING 10 FASTING 11 Serum levels of PSA measured using the [employer] DXI Hybritech immunoassay should not be interpreted [...] methods or kits cannot be used interchangeably. 12 Serum levels of PSA measured using the [employer] DXI Hybritech immunoassay should not be interpreted [...] methods or kits cannot be used interchangeably. 13 Desirable <150 Borderline high 150-199 High 200-499 Very High >500 14 Desirable <200 Borderline high 200-239 High >239 15 Low <40 Desirable: 40-60 High: >60 16 Desirable: <100 mg/dL Near Optimal: 100-129 mg/dL Borderline High: 130-159 mg/dL High: 160-189 mg/dL Very High: >189 mg/dL 17 Therapeutic target for the treatment of diabetes Mellitus patients is <7% HBA1C, and in selective patients <6.0%.Please refer to [place] [employer] Diabetic care guidelines for further information. 18 Because ethnic data is not always readily [...] 15-29 5 Kidney failure <15 (or dialysis) 19 CHOLESTEROL INTERPRETATION: Desirable: Less than 200 MG/DL Borderline-High Risk: 200-239 MG/DL High-Risk: 240 MG/DL and over 20 HDL INTERPRETATION: Undesirable: High Risk: Less than 40 MG/DL Desirable: Low Risk: Greater than 60 MG/DL 21 LDL INTERPRETATION: Low Risk Optimal Level: LDL Less than 100 MG/DL Near or Above Optimal: LDL 100-129 MG/DL Borderline High Risk: LDL 130-159 MG/DL High Risk: LDL 160-189 MG/DL Very High Risk: LDL Greater than 189 MG/DL 22 A metabolite of Naproxen, O-desmethylnaproxen, has been shown to interfere with the Jendrassik-Jose Ramon method for measuring total bilirubin. Samples from patients who have taken Naproxen have shown spurious elevation in total bilirubin levels. 23 THERAPEUTIC TARGET FOR THE TREATMENT OF DIABETES MELLITUS PATIENTS IS <7% HBA1C, AND IN SELECTIVE PATIENTS <6.0%. PLEASE REFER TO [place] [employer] DIABETIC CARE GUIDELINES FOR FURTHER INFORMATION. 24 CHOLESTEROL INTERPRETATION: Desirable: Less than 200 MG/DL Borderline-High Risk: 200-239 MG/DL High-Risk: 240 MG/DL and over 25 HDL INTERPRETATION: Undesirable: High Risk: Less than 40 MG/DL Desirable: Low Risk: Greater than 60 MG/DL 26 LDL INTERPRETATION: Low Risk Optimal Level: LDL Less than 100 MG/DL Near or Above Optimal: LDL 100-129 MG/DL Borderline High Risk: LDL 130-159 MG/DL High Risk: LDL 160-189 MG/DL Very High Risk: LDL Greater than 189 MG/DL 27 Anion gap measurement may be of limited value in the presence of any alkalosis, especially in a combined acid base disorder. . 28 Note change in reference range as of 10/26/07. The change was based on recommendations from the [place] [employer]. 29 Please note change in reference range effective 07 . 30 UNABLE TO CALCULATE IND.BILI D.BILI IS <0.1 31 * SERUM LEVELS OF PSA MEASURED USING THE [employer] ACCESS HYBRITECH IMMUNOASSAY SHOULD NOT BE INTERPRETED ABSOLUTE EVIDENCE OF THE PRESENCE OR ABSENCE OF DISEASE. THE PSA VALUE SHOULD BE USED IN CONJUNCTION WITH OTHER PERTINENT CLINICAL DIAGNOSTIC PROCEDURES. 32 THERAPEUTIC TARGET FOR THE TREATMENT OF DIABETES MELLITUS PATIENTS IS <7% HBA1C, AND IN SELECTIVE PATIENTS <6.0%. PLEASE REFER TO [place] [employer] DIABETIC CARE GUIDELINES FOR FURTHER INFORMATION. 33 * SERUM LEVELS OF PSA MEASURED USING THE DUYEN HOLGER ACCESS HYBRITECH IMMUNOASSAY SHOULD NOT BE INTERPRETED ABSOLUTE EVIDENCE OF THE PRESENCE OR ABSENCE OF DISEASE. THE PSA VALUE SHOULD BE USED IN CONJUNCTION WITH OTHER PERTINENT CLINICAL DIAGNOSTIC PROCEDURES. 34 Classification: Desirable . 35 CALCULATED LDL APPROXIMATES THE VALUE OF A DIRECT LDL MEASUREMENT. Classification: Near or above optimal . 36 Anion gap measurement may be of limited value in the presence of any alkalosis, especially in a combined acid base disorder. . 37 COMMENTS? N Procedures Date Code Description Status 04/13/2018 58357 EKG Tracing & Interpretation Completed 08/23/2017 45192 EKG Tracing & Interpretation Completed 06/14/2017 34085 ECHO Transthoracic, Real-Time 2D With Doppler And Color Completed Flow 06/14/2017 44964 ECHO Transthoracic, Real-Time 2D With Doppler And Color Completed Flow 07/02/2013 [id number] Colonoscopy Completed 03/04/2008 22783 Echocardiogram Completed 03/07/2003 [id number] Colonoscopy Completed Encounters Type Date Location Provider Dx Diagnosis [facility].9 Aortic aneurysm of 3:40p Angélica Best unspecified site, without rupture I35.1 Nonrheumatic aortic (valve) insufficiency Office Visit 08/23/2017 2:30p Georgiana Penny Gayle. I71.9 Aortic aneurysm Cardiology Angélica Best of unspecified site, without rupture I35.1 Nonrheumatic aortic (valve) insufficiency R94.31 Abnormal electrocardiogram [ECG] [EKG] R03.0 Elevated blood-pressure reading, w/o diagnosis of htn Office Visit 06/06/2017 1:00p [facility] Jung Reny, Z00.01 Encounter for Medicine - BAIL BOND AGENT general adult Shanks medical exam w abnormal findings Z13.220 Encounter for screening for lipoid disorders Z13.1 Encounter for screening for diabetes mellitus E04.9 Nontoxic goiter, unspecified R03.0 Elevated blood-pressure reading, w/o diagnosis of htn Office Visit 10/30/2009 2:40p DO Not Use Nib Finisher Josse Hope, 724.2 [facility] 06/11/2009 2:00p DO Not Use Nib Finisher Ezra Francis V70.0 Examination AT [facility] Angélica Velez,[facility] General Medical Routine AT [facility] 790.21 Impaired Fasting Glucose 272.4 Hyperlipidemia Other Unspec 441.2 Aneurysm Thoracic W/O Rupture Office Visit 02/08/2008 10:40a DO Not Use Nib Finisher Ezra Francis V70.0 Examination AT Mcne[place]esi Velez M.D.,[facility] General Medical Routine AT [facility] 441.2 Aneurysm Thoracic W/O Rupture 272.4 Hyperlipidemia Other Unspec 790.21 Impaired Fasting Glucose 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 Office Visit 08/01/2007 DO Not Use Nib Finisher Viky Brewster PA 466.0 Bronchitis Acute 11:30a AT [facility] Office Visit 01/05/2007 DO Not Use Nib Finisher Ezra Velez, V70.0 Examination 10:00a AT [facility] Angélica,[facility] General Medical Routine AT Health Care Facility V70.9 Examination General Medical Unspec 780.57 Unspecified Sleep Apnea 272.4 Hyperlipidemia Other Unspec 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 at [facility]04/13/2018 - Mica Rondon, NPG47.33 Obstructive sleep apnea ( adult) (pediatric)Referral:Dacia Cardenas MD, Pulmonary HfymzsjlH43.2 PalpitationsNew Orders:Stress Test, Exercise Nuclear, Scheduled: 05/10/18ot- Mobile Cardiac Outpatient Telemetry, Ordered: 04/13/18Follow up:f/u with either me ( Mica Rondon [facility]-) or Dr. Best after studies in 1.3grduizR40.1 Nonrheumatic aortic (valve) glprrllmskwvrX89.810 Thoracic aortic ectasia
--- NOTE | 2018-04-29 19:38 | ED ---
Palpitations / Dysrhythmia - HPI Summary HPI Summary: Pt is a 77 y/o male who presents to the ED c/o palpitations. 3 weeks ago he had his first episode of irregular heartbeat. The episode lasted a total of 8 hours , and his rhythm spontaneously converted. Pt was then placed on a Holter monitor for the past 2 weeks. He had another incident where his heart stopped for 5 seconds. Today at 17:00 he began his third incident of irregular palpitations, this time accompanied by near-syncope. Pt took an ASA. He consulted with Dr. Sullivan yesterday and is scheduled to have a pacemaker placed on 05/09/18. He denies any CP, SOB, weakness, nausea, headache, blurred vision, or diplopia. Pt denies being prescribed blood thinners. He notes that his HR is usually between 55 and 60 bpm, and his BP tends towards the low side. FHx arrhythmia. Pt is a former smoker. - History of Current Complaint Chief Complaint: EDDysrhythmPalp Time Seen by Provider: 04/29/18 19:31 Hx Obtained From: Patient Onset/Duration: Sudden Onset, Lasting Hours - 17:00 today, Still Present Timing: Constant Character: Irregular Aggravating: Nothing Alleviating: Nothing Associated Signs & Symptoms: Negative Related History: Similar Episode/Dx as - recent AFib - Allergy/Home Medications Allergies/Adverse Reactions: Allergies Allergy/AdvReac Type Severity Reaction Status Date / Time Penicillins Allergy Rash Verified 04/29/18 18:43 Home Medications: Home Medications NK [No Home Medications Reported] 04/29/18 [History Confirmed 04/29/18] PMH/Surg Hx/FS Hx/Imm Hx Endocrine/Hematology History: Denies: Hx Diabetes Cardiovascular History: Reports: Hx Atrial Fibrillation Denies: Hx Hypertension, Hx Pacemaker/ICD History: Denies: Hx Renal Disease Sensory History: Reports: Hx Hearing Aid Psychiatric History: Denies: Hx Panic Disorder - Cancer History Cancer Type, Location and Year: PROSTATE - Surgical History Surgery Procedure, Year, and Place: PROSTECTOMY - 2016. Lt LEG - [facility] - RECON. Rt FIB / ANKLE - PLATE-SCREWS. APPENDECTOMY. TONSILECTOMY Infectious Disease History: No Infectious Disease History: Denies: Traveled Outside the [place] in Last 30 Days - Family History Known Family History: Positive: Cardiac Disease - CAD and arhythmia - Social History Alcohol Use: None Hx Substance Use: No Substance Use Type: Reports: None Hx Tobacco Use: Yes Smoking Status (MU): Former Smoker Review of Systems Negative: Blurred Vision, Diplopia Positive: Palpitations. Negative: Chest Pain Negative: Shortness Of Breath Negative: Nausea Positive: Syncope - near. Negative: Headache, Weakness All Other Systems Reviewed And Are Negative: Yes Physical Exam - Summary Physical Exam Summary: Appearance: Well appearing, no pain distress Skin: warm, dry, reflects adequate perfusion Head/face: normal Eyes: EOMI, JOCELIN ENT: mucous membranes moist Neck: supple, non-tender Respiratory: CTA, breath sounds present Cardiovascular: irregularly irregular rhythm with rapid rate, pulses symmetrical , no LE edema Abdomen: non-tender, soft Bowel Sounds: present Musculoskeletal: normal, strength/ROM intact Neuro: normal, sensory motor intact, A&Ox3 Triage Information Reviewed: Yes Vital Signs On Initial Exam: Initial Vitals Temp Pulse Resp BP Pulse Ox 97.8 F 132 16 153/95 95 04/29/18 18:40 04/29/18 18:40 04/29/18 18:40 04/29/18 18:40 04/29/18 18:40 Vital Signs Reviewed: Yes Procedures - Procedure Summary Procedure Summary: Procedural sedation and cardioversion: Reason: Rapid atrial fibrillation Description: The patient was formally consented and form was signed. He was NPO. Time out was performed. The patient was placed on full cardiopulmonary monitoring including end-tidal CO2. He was started on oxygen and IV was established. Suctioning was available. He was given 80 mg of IV propofol which adequately sedated him. He received synchronized cardioversion first at 100 J then at 120 J. Following the second attempt he was cardioverted into normal sinus rhythm for approximately 30 seconds. At that time he went into a regular tachycardia at a rate of 126. This was found to be in atrial tachycardia there were no P waves present. He he recovered quickly without any ill effect of sedation. He tolerated both sedation and cardioversion well. He is not converted out of his arrhythmia. Diagnostics - Vital Signs Vital Signs Temp Pulse Resp BP Pulse Ox 04/29/18 19:00 75 21 95 04/29/18 18:50 130 17 96 04/29/18 18:40 97.8 F 132 16 153/95 95 - Laboratory Result Diagrams: 04/29/18 19:53 04/29/18 19:53 Lab Statement: Any lab studies that have been ordered have been reviewed, and results considered in the medical decision making process. - EKG 18:51 Cardiac Rate: Other Rate - AFib - 76 bpm EKG Rhythm: Atrial Fibrillation ST Segment: Normal Summary of EKG Findings: Nl axis 21:00 Cardiac Rate: Other Rate - AFib - 47 bpm EKG Rhythm: Atrial Fibrillation ST Segment: Non-Specific Summary of EKG Findings: Nl axis Re-Evaluation - Re-Evaluation First Eval Re-Evaluation Time: 20:25 Change: Unchanged Comment: Performed cardioversion. Course/Dx - Course Course Of Treatment: Nurse's notes reviewed. Patient is in rapid atrial fibrillation/flutter in the 120s to 130s. He is not on anticoagulation. He has paroxysmal disease and is currently wearing an external heart monitor. We sedated him and attempted cardioversion after pretreating with metoprolol. He ended up in a regular atrial tachycardia/SVT which we treated with metoprolol and IV bolus of diltiazem. He slowed into a bradycardic rate in the 40s with atrial fibrillation. I spoke with cardiology who wished to have the patient admitted and started on heparin drip. This was done. We discussed the case with the hospitalist who will admit. It's anticipated that he will receive pacer/defibrillator likely Tuesday morning. - Diagnoses Differential Diagnosis/HQI/PQRI: Positive: AV Block, Cardiomyopathy, Hypokalemia , Other - SVT, A. fib, a flutter Provider Diagnoses: Rapid atrial fibrillation - Physician Notifications Discussed Care Of Patient With: Lisy Mcdonald Time Discussed With Above Provider: 21:10 Instructed by Provider To: Other - Put the pt on a Heparin drip and admit. At 21 :22 Dr. Jones accepts pt for admission. - Critical Care Time Critical Care Time: 30-74 min - Critical care time is exclusive of separately billable procedures Discharge - Sign-Out/Discharge Documenting (check all that apply): Patient Departure - Admit Patient Received Moderate/Deep Sedation with Procedure: Yes - Discharge Plan Condition: Fair Disposition: ADMITTED TO [facility] Referrals: Mary Foss MD [Primary Care Provider] - - Billing Disposition and Condition Condition: FAIR Disposition: Admitted to [facility] - Attestation Statements Document Initiated by Scribe: Yes Documenting Scribe: January Alfonso Provider For Whom Scribe is Documenting (Include Credential): Raphael Dennison MD Scribe Attestation: IJanuary, scribed for Raphael Dennison MD on 04/29/18 at 2211. Scribe Documentation Reviewed: Yes Provider Attestation: The documentation as recorded by the [email or web address] accurately reflects the service I personally performed and the decisions made by me, Raphael Dennison MD Status of Scribe Document: Viewed
[2018-04-29] MEDS ORDERED: Propofol* 10 MG/ML 20 ML BTL IV PUSH ONE (19:52)
[2018-04-29 20:01] LABS: ABS Basophils 0 10^3/ul (0-0.2); ABS Eosinophils 0.1 10^3/ul (0-0.6); ABS Lymphocytes 1.1 10^3/ul (1.0-4.8); ABS Monocytes 0.4 10^3/ul (0-0.8); ABS Neutrophils 3.2 10^3/ul (1.5-7.7); ABS Nucleated RBC 0 10^3/ul; Hematocrit 43 % (42-52); Hemoglobin 14.8 g/dl (14.0-18.0); Lymphocyte % 22.2 %; Mean Corpuscular HGB Conc 34 g/dl (31-36); Mean Corpuscular Hemoglobin 35 pg (27-31); Mean Corpuscular Volume 103 fL (80-94); Mean Platelet Volume 8.9 fL (7.4-10.4); Nucleated Red Blood Cells % 0.1; Platelet Count 174 10^3/ul (150-450); Red Cell Distribution Width 13 % (10.5-15); White Blood Count 4.8 10^3/ul (3.5-10.8)
[2018-04-29] MEDS ORDERED: Propofol* 500 MG/50 ML BTL ONE (20:04)
[2018-04-29 20:07] LABS: INR 0.91 (0.77-1.02)
[2018-04-29] MEDS: Metoprolol Tartrate IV* 1 MG/ML 5 ML VIAL IV ONE ×2 (20:09→20:33)
[2018-04-29 20:18] LABS: Albumin 4.5 g/dL (3.2-5.2); Albumin/Globulin Ratio 1.7 (1-3); BUN/Creatinine Ratio 19.4 (8-20); Calcium 9.9 mg/dL (8.6-10.3); EGFR Non-African American 70.2 (>60); Globulin 2.7 g/dL (2-4); Magnesium 2.1 mg/dL (1.9-2.7); Potassium 4.3 mmol/L (3.5-5.0); Total Bilirubin 0.7 mg/dL (0.2-1.0); Total Protein 7.2 g/dL (6.4-8.9)
[2018-04-29 20:21] LABS: Troponin I 0.03 ng/mL (<0.04)
[2018-04-29] MEDS ORDERED: Metoprolol Tartrate IV* 1 MG/ML 5 ML VIAL ONE (20:30)
[2018-04-29] MEDS ORDERED: Diltiazem IV* 5 MG/ML 5 ML VIAL (for loading dose/IV Push) (25 MG) IV SLOW PU ONE ×2 (20:39)
[2018-04-29] MEDS ORDERED: Metoprolol Tartrate IV* 1 MG/ML 5 ML VIAL IV ONE (20:39)
[2018-04-29 21:04] LABS: TSH (Thyroid Stimulating Horm) 2.55 mcIU/mL (0.34-5.60)
[2018-04-29] MEDS ORDERED: Heparin VIAL(*) 5000 UNITS/ML VIAL (FIVE THOUSAND) IV PRN (21:44)
[2018-04-29] MEDS ORDERED: Heparin VIAL(*) 5000 UNITS/ML VIAL (FIVE THOUSAND) ONE (22:18)
[2018-04-29] MEDS ORDERED: Heparin DRIP 25,000 UNITS(*) 25,000 UNITS/500 ML BAG ONE (22:19)
[2018-04-29] MEDS ORDERED: Acetaminophen TAB* 325 MG PO PRN (22:49)
[2018-04-29] MEDS ORDERED: Naproxen TAB* 250 MG PO PRN (22:49)
[2018-04-29] MEDS: Heparin DRIP 25,000 UNITS(*) 25,000 UNITS/500 ML BAG IV SCH (23:15)
[2018-04-30 03:40] LABS: BUN/Creatinine Ratio 19.8 (8-20); Calcium 8.7 mg/dL (8.6-10.3); Potassium 3.8 mmol/L (3.5-5.0)
[2018-04-30 06:57] LABS: ABS Basophils 0 10^3/ul (0-0.2); ABS Eosinophils 0.2 10^3/ul (0-0.6); ABS Lymphocytes 0.9 10^3/ul (1.0-4.8); ABS Monocytes 0.3 10^3/ul (0-0.8); ABS Neutrophils 1.5 10^3/ul (1.5-7.7); ABS Nucleated RBC 0 10^3/ul; Eosinophil % 5.2 %; Hematocrit 37 % (42-52); Hemoglobin 12.6 g/dl (14.0-18.0); Mean Corpuscular HGB Conc 34 g/dl (31-36); Mean Corpuscular Hemoglobin 35 pg (27-31); Mean Corpuscular Volume 103 fL (80-94); Mean Platelet Volume 8.9 fL (7.4-10.4); Nucleated Red Blood Cells % 0.1; Platelet Count 146 10^3/ul (150-450); Red Blood Count 3.58 10^6/ul (4.00-5.40); Red Cell Distribution Width 13 % (10.5-15)
--- NOTE | 2018-04-30 07:57 | HP ---
HISTORY AND PHYSICAL: DATE OF ADMISSION: 04/29/18 PRIMARY CARE PROVIDER: Jung Oglesby NP HEALTHCARE PROXY: His . CODE STATUS: Full. CHIEF COMPLAINT: Palpitations. SOURCE OF INFORMATION: History is obtained from interview of the patient and review of past medical records. The patient is an excellent historian. HISTORY OF PRESENT ILLNESS: This is a 77-year-old man with past medical history of recently diagnosed sick sinus syndrome and supraventricular tachycardia followed by Dr. Sullivan as well as hyperlipidemia, history of prostate cancer status post prostatectomy and congenital aneurysm of thoracic aorta on surveillance without intervention who presented to the emergency room tonight with extended episode of symptomatic palpitations in the home. The patient is currently 2 weeks into an event monitor and noted that his heart rate was elevated to the 130s for extended period of time. He did have symptoms of palpitations, mild shortness of breath and at one point culminated with the patient feeling that he might pass out and having presyncopal symptoms. He denies loss of consciousness. He denies chest pain. He denies weakness or fatigue. He denies GI, , MSK, or neurologic symptoms at this time. He was initially slated to have a pacemaker placement for 05/10/18 and was last seen by Dr. Sullivan on 04/28/18, though he decided to present to the emergency room because of his persistent symptoms in the home. EMERGENCY ROOM COURSE: The patient presented to the emergency room with heart rate irregularly irregular at rate of 126, noted to be AFib with RVR, asymptomatic with a blood pressure of 126/87, respiratory rate of 21, oxygen saturation of 98% and afebrile. The patient was given metoprolol IV push at the bedside, 5 mg x2 with no effect and then in the emergency room the patient was electively cardioverted with brief remission into sinus for roughly 10 to 15 minutes and then again resumed supraventricular tachycardia, rate in the 120s with symptomatic palpitations and at that time was given Cardizem 10 mg IV push, which then lowered his rate to 40s, although remained not in sinus, but in atrial fibrillation with rate controlled in the 50s. Emergency room in discussion with Cardiology team elected to admit the patient for further telemetry monitoring and possible need for further rate control and anticipation of possibly moving up his pacemaker placement date. At time of my interview, the patient was resting comfortably in irregularly irregular rhythm in the 60s, mentating well. He had no further symptoms and felt comfortable. His is at his bedside and denied chest pain or shortness of breath, palpitations at that time, or dizziness. He was admitted to the medical service for further evaluation and treatment on the telemetry unit. PAST MEDICAL HISTORY: 1. Dyslipidemia. 2. History of prostate cancer, status post prostatectomy. 3. Congenital thoracic aortic aneurysm that has been followed with surveillance. 4. Recently diagnosed sick sinus syndrome with accompanied supraventricular tachycardia, recently consulted to Dr. Sullivan. 5. Sleep apnea. 6. Mild aortic insufficiency. PAST SURGICAL HISTORY: 1. Appendectomy. 2. Prostatectomy. 3. Tonsillectomy. 4. Tibial plateau repair. MEDICATIONS: 1. Aspirin 325 mg 1 tab as needed for pain. 2. Aleve 220 mg 1 p.o. daily q.a.m. No other medications. ALLERGIES: Allergic to PENICILLIN, he gets a rash. FAMILY HISTORY: Father is positive for history of bladder cancer and peripheral vascular disease. Mother is secondary to septicemia. He has a sister with breast cancer. SOCIAL HISTORY: He is . He lives with his . He is a retired professor of [employer]. He is a former smoker with 35-pack year and end date was 2000. Alcohol, he is a social drinker, 1 to 2 glasses of wine 3 times a week. Denies any illicit substance use. REVIEW OF SYSTEMS: Constitutional: He denies fevers or chills, weight loss, weight gain. Cardiac: He denies chest pain. He does endorse palpitations during his events of supraventricular tachycardia. Respiratory: He denies cough, hemoptysis, or shortness of breath except during his events of elevated heart rate where he has mild shortness of breath. GI: No nausea, vomiting, diarrhea, or abdominal pain. : No gross hematuria and dysuria. Neuro: No focal weakness or sensory loss. HEENT: No headaches. No visual complaints. No dysphagia. Musculoskeletal: No arthralgias, myalgias. Skin: No rashes or lesions. Psych: He has no confusion, depression, or anxiety. PHYSICAL EXAMINATION GENERAL: The patient is a very pleasant man, in no acute distress, sitting up in bed. VITAL SIGNS: At the time of my exam, vital signs are blood pressure 103/64, heart rate 57, irregularly irregular with no P waves on the monitor, respiratory rates 13, oxygen saturation 98% on room air. HEENT: His oropharynx is clear. He has moist mucous membranes. His sclerae are anicteric. LYMPHATIC: He has no cervical or supraclavicular lymphadenopathy. RESPIRATORY: He is clear to auscultation bilaterally. CARDIAC: He has irregularly irregular rhythm with no murmurs, rubs, or gallops. No elevated JVP. ABDOMEN: His belly is soft, nontender, nondistended with active bowel sounds in all 4 quadrants and no hepatosplenomegaly. MUSCULOSKELETAL: He has no clubbing or cyanosis. He has full range of motion of all 4 extremities. NEURO: His cranial nerves II through XII are intact. His sensation is intact with no focal neurologic deficits. PSYCHIATRY: He is oriented x4 with no evidence of depression, anxiety. He is pleasant and cooperative. SKIN: He has no rashes or abnormalities. LABORATORY DATA/DIAGNOSTIC STUDIES: He had a BMP that was drawn that showed sodium 142, potassium 4.3, chloride 106, CO2 29, BUN 20, creatinine 1.03, glucose 82. CBC that showed white blood cell count of 4, H and H of 14 and 43, platelets of 174. TSH was drawn 2.55. LFTs were drawn, which were notable for alkaline phosphatase of 49, AST 27, ALT 22. Troponin was drawn, which was flat at 0.03. Imaging was not done in the ER. An EKG was done, which showed irregularly irregular rhythm with rate in the 60s and was consistent with atrial fibrillation, no evidence of ischemia. EKGs were reviewed personally. Last echocardiogram was reviewed, 06/14/17 done at [facility], he has normal global wall motion, visual ejection fraction is 55% to 60%, he has an indeterminate diastolic filling pattern, left atrial cavity is mild to moderately dilated, an aneurysm without a patent foramen ovale is present, right atrial cavity is moderately dilated, right ventricular cavity is slightly dilated, a low normal right ventricular function, a trileaflet aortic valve with mild to moderate regurgitation, mild grade I mitral valve leaflets, wainwright tricuspid valve with mild regurgitation, the aortic root is moderately dilated, moderately dilated ascending aorta with mildly dilated aortic arch. ASSESSMENT AND PLAN: This is a 77-year-old gentleman with recently diagnosed sick sinus syndrome, currently on a Holter monitor at home with plans for a pacemaker placement later this month, history of prostate cancer, thoracic aortic aneurysm, DIVINE, aortic insufficiency who presented with symptomatic arrhythmia, found to be in AFib versus SVT with RVR and symptomatic with dizziness and hemodynamically stable. He had 2 failed cardioversions in the emergency room and is admitted to the medical service on telemetry for further rate control and possible pacemaker placement by the cardiology service. 1. Sick sinus syndrome with Afib and RVR. The patient is currently status post metoprolol 5 mg IV x2 status post 2 failed cardioversion in the emergency room and most recently 10 mg IV Cardizem x1 at the bedside. He will be admitted to the med tele service and has episode of recurrent atrial fibrillation with RVR. We will consider starting Cardizem gtt. Start heparin gtt at request of Cardiology who is consulted in this case for a possible pacemaker placement and as well as CHADS-VASc score of 3 necessitating anticoagulation. The patient has no complaints of chest pain. His troponin is negative. His EKG shows no sign of ischemia. We will not further trend troponins tonight and if has additional episode of atrial fibrillation overnight , we will add-on troponin for morning labs. 2. Obstructive sleep apnea. Unclear if the patient is on CPAP. He can elect for his own equipment or our equipment as needed. 3. FEN: The patient may have heart healthy diet with decaffeinated drinks in house. 4. DVT prophylaxis: The patient is on therapeutic heparin drip for anticoagulation in setting of possible pacemaker placement and new supraventricular tachycardia/atrial fibrillation with a CHADS-VASc score of greater than 3. 5. Code status. The patient is full code. TIME SPENT: 40 minutes were spent in the execution of this H and P and admission with over half of that spent at the bedside with the patient providing direct patient care. Case was discussed with his family members and the patient and they mike to admission to medical telemetry floor for further cardiology consultation and monitoring for possible rate control. PCP will be contacted during this hospitalization. [id number]/[id number] #: [id number] JESU
[2018-04-30] MEDS ORDERED: Potassium Chlor TAB* 10 MEQ TAB.ER PO ONE (15:42)
--- NOTE | 2018-04-30 15:44 | PN ---
Subjective Date of Service: 04/30/18 Interval History: Patient is feeling back to his normal state of health. Patient gets slightly dizzy on standing. Patient denies CP, SOB, N/V, abdominal pain, dysuria, passing out, palpitations, or other pain. Patient is anxious to have pacemaker placed due to episodes of presyncope. Family History: Unchanged from Admission Social History: Unchanged from Admission Past Medical History: Unchanged from Admission Objective Active Medications: Acetaminophen (Tylenol Tab*) 650 mg PO Q4H PRN PRN Reason: FEVER/PAIN Heparin Sodium (Porcine) (Heparin Vial(*)) 0 units IV .FOR BOLUSES PRN PRN Reason: HEPARIN DRIP BOLUSES Last Admin: 04/29/18 22:31 Dose: 5,900 units Heparin Sodium/Dextrose (Heparin Drip 25,000 Units(*)) 25,000 units in 500 mls @ 0 mls/hr IV PER RATE SHERRY; Protocol Last Admin: 04/29/18 23:15 Dose: 25 mls/hr Naproxen (Naprosyn Tab*) 250 mg PO Q12H PRN PRN Reason: HEADACHE/PAIN Vital Signs - 8 hr 04/30/18 13:02 Temperature 98.2 F Pulse Rate 58 Respiratory 18 Rate Blood Pressure 123/62 (mmHg) O2 Sat by Pulse 96 Oximetry Oxygen Devices in Use Now: None Appearance: Patient is a 77yo male who appears stated age and is sitting in the bed in NAD. Eyes: No Scleral Icterus, PERRLA Ears/Nose/Mouth/Throat: NL Teeth, Lips, Gums, Clear Oropharnyx, Mucous Membranes Moist Neck: NL Appearance and Movements; NL JVP, Trachea Midline Respiratory: Symmetrical Chest Expansion and Respiratory Effort, Clear to Auscultation Cardiovascular: NL Sounds; No Murmurs; No JVD, No Edema, - - Bradycardia. Abdominal: NL Sounds; No Tenderness; No Distention, No Hepatosplenomegaly Lymphatic: No Cervical Adenopathy Extremities: No Edema, No Clubbing, Cyanosis Skin: No Rash or Ulcers, No Nodules or Sclerosis Neurological: Alert and Oriented x 3, NL Sensation, NL Muscle Strength and Tone , - - CN II-XII intact. Result Diagrams: 04/30/18 06:32 04/30/18 03:21 Assess/Plan/Problems-Billing Assessment: Patient is a 77yo male with a PMH for SSS, Afib, prostate cancer with prostatectomy and DIVINE who has been having presyncope in association with what were found to be pauses on holter who is admitted with Afib with RVR which was spontaneously converted to sinus bradycardia and is awaiting pacemaker placement when available. - Patient Problems (1) Atrial fibrillation Current Visit: Yes Status: Acute Code(s): I48.91 - UNSPECIFIED ATRIAL FIBRILLATION SNOMED Code(s): 87959435 Comment: - PAF, Failed Cardioversion, Initially rate controlled and now in Sinus Bradycardia - Heparin Drip for Anticoagulation - Pacemaker tomorrow and then likely NOAC and BB - Appreciate Cardiology input. (2) SSS (sick sinus syndrome) Current Visit: Yes Status: Acute Code(s): I49.5 - SICK SINUS SYNDROME SNOMED Code(s): 46447892 Comment: - With up to 8 second pauses - Pacemaker tomorrow (3) History of prostate cancer Current Visit: Yes Status: Acute Code(s): Z85.46 - PERSONAL HISTORY OF MALIGNANT NEOPLASM OF PROSTATE SNOMED Code(s): 794378501 Comment: - S/P Prostatectomy (4) DIVINE (obstructive sleep apnea) Current Visit: Yes Status: Acute Code(s): G47.33 - OBSTRUCTIVE SLEEP APNEA ( ADULT) (PEDIATRIC) SNOMED Code(s): 93321413 Comment: - States compliant at home - Continue home CPAP (5) Full code status Current Visit: Yes Status: Acute Code(s): Z78.9 - OTHER SPECIFIED HEALTH STATUS SNOMED Code(s): 754020352 (6) DVT prophylaxis Current Visit: Yes Status: Acute Code(s): OPZ7467 - SNOMED Code(s): 653868312 Comment: - Heparin drip
[2018-04-30 17:59] LABS: Folate 19.43 ng/mL (>3.99)
--- NOTE | 2018-04-30 19:43 | CONS ---
CC: Dr. Best; Dr. Sullivan; Dr. Ezra Velez * CARDIOLOGY CONSULTATION: DATE OF CONSULT: 04/30/18 REASON FOR CONSULT: Atrial fibrillation and bradycardia. CHIEF COMPLAINT: Palpitations and dizziness. HISTORY OF PRESENT ILLNESS: Mr. Mccracken is a 77-year-old gentleman with a history of sleep apnea. He has otherwise been healthy until just a few weeks ago, he states he has had 3 events where he felt palpitations and racing of the heart. The first one lasted overnight and cleared on its own at 6 in the morning. He then underwent an event monitor under Dr. Best's advice and he had another episode of atrial fibrillation, which he was aware of and he also had an 8-second pause during this, for which he was asymptomatic. The patient had been seen and scheduled for pacer implantation in about 10 days. Last night, the patient was in his usual state of health and suddenly developed racing and palpitations of the heart and he was quite dizzy. He presented to the emergency room and EKG confirmed atrial fibrillation. Per verbal reports from Dr. Dennison, he underwent electrical cardioversion, but this was unsuccessful. He then developed a tachycardic response, was given intravenous Cardizem and became quite bradycardic. By the time I am seeing him this morning, he is now spontaneously converted back to sinus rhythm, sinus bradycardia and is feeling fine. The patient denies ever fainting, but again was dizzy yesterday while at home. He denies any recent fevers, chills, sweats. No recent change in bowel or bladder habits. He admits to having some constipation when he travels, but he has never fainted with this. PAST MEDICAL HISTORY: The patient has a past medical history of: 1. Paroxysmal AFib. 2. Tachybrady syndrome with 8-second pauses. 3. Dilatation of the ascending aorta 4.4 cm, 2010. 4. Aortic insufficiency. 5. Diverticulosis. 6. Sciatica. 7. Obstructive sleep apnea. 8. Prostate cancer, status post prostatectomy. OUTPATIENT MEDICATIONS: Include: 1. Aspirin p.r.n. 2. Aleve. ALLERGIES: Include PENICILLIN. FAMILY HISTORY: Significant that his father had bladder cancer and peripheral vascular disease. His mother had a history of sepsis and a sister with breast cancer. 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 Lives with his . He smoked a pack and a half a day until 2000. Drinks a couple glasses of wine a night. He works out at the gym regularly. REVIEW OF SYSTEMS: Negative for fevers, chills, sweats, change in bowel or bladder habits. No new or [id number] medications other than aspirin he takes with the events. No orthopnea, PND, change in functional ability. He did have dizziness with the onset of the rhythm as discussed. His said he snores and he does say that he uses his CPAP regularly, but has been suspicious that it needs adjusting and is scheduled in the near future for a repeat sleep study. All other 14-point review of systems is negative. PHYSICAL EXAM: The patient is 5 feet 7 inches, weighs 180 pounds with a BMI of 28. Current vital signs: Blood pressure 139/65, pulse was 60, respiratory rate 16, oxygen saturation on room air 97%, he has been afebrile. General Appearance : Fit appearing older gentleman, in no acute distress, lying at 30 degrees. His is present. Psychologically, pleasant and cooperative. Neurologically , awake, alert, and oriented to person, place, and time. Cranial nerves II through XII intact. Grossly normal sensory and motor function in the upper and lower extremities and normal motor function in the bed. Skin: Warm, dry. No cyanosis or rashes. HEENT: Pupils are equal and around. Mucous membranes moist. Neck without thyromegaly or increased JVP. Breath sounds were clear with good effort. No wheezes, rales, or rhonchi. Coronary: S1, S2, regular. No systolic murmurs and I did not appreciate a diastolic murmur. Abdomen: Active bowel sounds. Soft, nontender. No hepatosplenomegaly or masses. Lower extremities are free of edema, warm with strong 2+ posterior tibial and dorsalis pedis pulses. DIAGNOSTIC STUDIES/LAB DATA: Echocardiogram from 06/14/17 shows an ejection fraction of 55% to 60% with atrial enlargement and mild right ventricular dilatation, [id number] aortic insufficiency, mild mitral and mild tricuspid insufficiency, moderate dilatation of the ascending aorta. EKG on arrival to the emergency room 04/29/18 at 1851 showed atrial fibrillation with a ventricular rate of 76 beats per minute, QRS axis +30, normal intraventricular conduction time, and STs unremarkable. Repeat EKG this morning shows sinus rhythm at 60 beats per minute, QRS axis +60 with normal AV and IV conduction times, and normal STs. Labs: Sodium 140, potassium 3.8, chloride 109, bicarb 26, BUN 18, creatinine 0.91, glucose 92, magnesium 2.0. Troponin 0.03. TSH 2.55. INR 0.91, PTT 66. White count 3.0, hemoglobin 12.6, hematocrit 37, mean cell volume 103. Holter monitor done April 2018, showed paroxysmal atrial fibrillation and up to 8-second pauses. IMPRESSION AND PLAN: In summary, Mateus Mccracken is a 77-year-old gentleman with recent onset of paroxysmal atrial fibrillation with evidence of tachybrady syndrome and up to 8-second pauses. He presented with a symptomatic atrial fibrillation. He came markedly bradycardic in the emergency room with Cardizem and converted overnight to sinus rhythm and needs a pacemaker. I recommended pacemaker implantation this admission, as it is going to be difficult to manage his tachyarrhythmias without it and he needs the pacemaker to prevent more symptomatic bradycardia. The patient very much wants to get this done and not go home and wait additional time. For the tachybrady syndrome, we will plan pacemaker implantation tomorrow morning. For the paroxysmal atrial fibrillation, for now, we will leave him on a heparin drip and on discharge tentatively plan on starting him on a NOAC. Additionally , he would benefit from an antiarrhythmic, which we can consider postoperatively. I concur that the patient would benefit from getting updated sleep evaluation, which is in progress. I am going to recommend the patient cut out the alcohol short term at least to decrease the chance of recurrent atrial fibrillation. For the patient's dilatation of the ascending aorta, he is not on any antihypertensives. Ideally, once the pacer is in, we will start him on a beta- leah, but other options would include an LUCRETIA inhibitor or ARB. For the patient's elevated mean cell volume, I will check a B12 and folate as I do not see that this has been done before in lab work. Additional recommendations will be made pending the response to the above measures. [id number]/[facility] #: [id number] [facility] HOSPITALMontse
[2018-04-30] MEDS: Heparin DRIP 25,000 UNITS(*) 25,000 UNITS/500 ML BAG IV SCH (22:41)
[2018-05-01] MEDS ORDERED: NS 0.9% 1000 ML** 1,000 ML IV SCH (06:00)
[2018-05-01 06:08] LABS: ABS Basophils 0 10^3/ul (0-0.2); ABS Eosinophils 0.1 10^3/ul (0-0.6); ABS Lymphocytes 0.9 10^3/ul (1.0-4.8); ABS Monocytes 0.3 10^3/ul (0-0.8); ABS Neutrophils 1.7 10^3/ul (1.5-7.7); ABS Nucleated RBC 0 10^3/ul; Eosinophil % 4.5 %; Hematocrit 38 % (42-52); Hemoglobin 13.2 g/dl (14.0-18.0); Lymphocyte % 28.3 %; Mean Corpuscular HGB Conc 34 g/dl (31-36); Mean Corpuscular Hemoglobin 35 pg (27-31); Mean Corpuscular Volume 102 fL (80-94); Mean Platelet Volume 8.4 fL (7.4-10.4); Nucleated Red Blood Cells % 0.1; Platelet Count 152 10^3/ul (150-450); Red Blood Count 3.75 10^6/ul (4.00-5.40); Red Cell Distribution Width 13 % (10.5-15)
[2018-05-01 06:26] LABS: Calcium 9.2 mg/dL (8.6-10.3); EGFR African American 99.3 (>60); Potassium 3.9 mmol/L (3.5-5.0)
--- NOTE | 2018-05-01 09:39 | PN ---
Subjective Date of Service: 05/01/18 Interval History: f/u atrial fibrillation, sinus node disease Patient in sinus rhythm currently asymptomatic Heparin inadvertently not held in time, earliest pacemaker can be is Tuesday Medications Active Medications: Acetaminophen (Tylenol Tab*) 650 mg PO Q4H PRN PRN Reason: FEVER/PAIN Enoxaparin Sodium (Lovenox(*)) 80 mg SUBCUT Q12H [facility] Stop: 05/02/18 08:01 Sodium Chloride (Ns 0.9% 1000 Ml) 1,000 mls @ 75 mls/hr IV PER RATE [facility] Last Admin: 05/01/18 05:32 Dose: 75 mls/hr Naproxen (Naprosyn Tab*) 250 mg PO Q12H PRN PRN Reason: HEADACHE/PAIN Objective Vital Signs: Temp Pulse Resp BP Pulse Ox 98.0 F 62 20 115/63 98 05/01/18 03:32 05/01/18 03:32 05/01/18 07:37 05/01/18 03:32 05/01/18 03:32 Oxygen Devices in Use Now: None Appearance: nad, pleasant Neck: NL Appearance and Movements; NL JVP, Trachea Midline Respiratory: Symmetrical Chest Expansion and Respiratory Effort, Clear to Auscultation Cardiovascular: NL Sounds; No Murmurs; No JVD, RRR, No Edema Abdominal: NL Sounds; No Tenderness; No Distention Extremities: No Edema Skin: No Rash or Ulcers Neurological: Alert and Oriented x 3 Laboratory Results: 05/01/18 05:47 05/01/18 05:47 INR (Anticoag Therapy) 0.91 (0.77-1.02) 04/29/18 19:53 APTT 56.5 seconds (26.0-36.3) H 05/01/18 05:47 Total Bilirubin 0.70 mg/dL (0.2-1.0) 04/29/18 19:53 AST 27 U/L (13-39) 04/29/18 19:53 ALT 22 U/L (7-52) 04/29/18 19:53 Alkaline Phosphatase 49 U/L (34-104) 04/29/18 19:53 Total Protein 7.2 g/dL (6.4-8.9) 04/29/18 19:53 Albumin 4.5 g/dL (3.2-5.2) 04/29/18 19:53 Globulin 2.7 g/dL (2-4) 04/29/18 19:53 Albumin/Globulin Ratio 1.7 (1-3) 04/29/18 19:53 TSH 2.55 mcIU/mL (0.34-5.60) 04/29/18 19:53 04/29/18 19:53 Troponin I 0.03 EKG Data: 04/30/2018: NSR 60 bpm Assessment/Plan patient current in sinus rhythm, asymptomatic. see consult note for full details Patient will decide if wants to stay until Wed to have pacemaker or go home and have it as an outpatient For now will d/c IVF, heparin gtt, give a diet and give a dose of therapeutic lovenox tonight and tomorrow AM then hold (all ordered)
[2018-05-01] MEDS ORDERED: ceFAZolin 2 GM PREMIX in ORs 2 GM/50 ML BAG IVPB ONE (11:00)
--- NOTE | 2018-05-01 15:59 | PN ---
Subjective Date of Service: 05/01/18 Interval History: Patient is feeling well, patient has no symptoms of dizziness or palpitations. Patient states he has had a macrocytosis for all his life and so did his father. Patient denies CP, SOB, Abdominal pain, dysuria, F/C, N/V, or other pain. Family History: Unchanged from Admission Social History: Unchanged from Admission Past Medical History: Unchanged from Admission Objective Active Medications: Acetaminophen (Tylenol Tab*) 650 mg PO Q4H PRN PRN Reason: FEVER/PAIN Enoxaparin Sodium (Lovenox(*)) 80 mg SUBCUT Q12H [facility] Stop: 05/02/18 08:01 Naproxen (Naprosyn Tab*) 250 mg PO Q12H PRN PRN Reason: HEADACHE/PAIN Vital Signs - 8 hr 05/01/18 05/01/18 08:06 11:41 Temperature 97.4 F 97.9 F Pulse Rate 66 57 Respiratory 20 16 Rate Blood Pressure 120/65 128/59 (mmHg) O2 Sat by Pulse 97 98 Oximetry Oxygen Devices in Use Now: None Appearance: Patient is a 77yo male who appears stated age and is sitting in the bed in NAD. Eyes: No Scleral Icterus, PERRLA Ears/Nose/Mouth/Throat: NL Teeth, Lips, Gums, Clear Oropharnyx, Mucous Membranes Moist Neck: NL Appearance and Movements; NL JVP, Trachea Midline Respiratory: Clear to Auscultation Cardiovascular: NL Sounds; No Murmurs; No JVD, RRR, No Edema Abdominal: NL Sounds; No Tenderness; No Distention, No Hepatosplenomegaly Lymphatic: No Cervical Adenopathy Extremities: No Edema, No Clubbing, Cyanosis Skin: No Rash or Ulcers, No Nodules or Sclerosis Neurological: Alert and Oriented x 3, NL Sensation, NL Muscle Strength and Tone , - - CN II-XII intact. Result Diagrams: 05/01/18 05:47 05/01/18 05:47 Assess/Plan/Problems-Billing Assessment: Patient is a 77yo male with a PMH for SSS, Afib, prostate cancer with prostatectomy and DIVINE who has been having presyncope in association with what were found to be pauses on holter who is admitted with Afib with RVR which was spontaneously converted to sinus bradycardia and is awaiting pacemaker placement when available. - Patient Problems (1) Atrial fibrillation Current Visit: Yes Status: Acute Code(s): I48.91 - UNSPECIFIED ATRIAL FIBRILLATION SNOMED Code(s): 13544600 Comment: - PAF, Failed Cardioversion, Initially rate controlled and now in Sinus Bradycardia - Lovenox for Anticoagulation - Pacemaker on Tuesday - Appreciate Cardiology input. (2) SSS (sick sinus syndrome) Current Visit: Yes Status: Acute Code(s): I49.5 - SICK SINUS SYNDROME SNOMED Code(s): 42228399 Comment: - With up to 8 second pauses - Pacemaker Tuesday (3) History of prostate cancer Current Visit: Yes Status: Acute Code(s): Z85.46 - PERSONAL HISTORY OF MALIGNANT NEOPLASM OF PROSTATE SNOMED Code(s): 526093665 Comment: - S/P Prostatectomy (4) DIVINE (obstructive sleep apnea) Current Visit: Yes Status: Acute Code(s): G47.33 - OBSTRUCTIVE SLEEP APNEA ( ADULT) (PEDIATRIC) SNOMED Code(s): 23037261 Comment: - States compliant at home - Continue home CPAP (5) Full code status Current Visit: Yes Status: Acute Code(s): Z78.9 - OTHER SPECIFIED HEALTH STATUS SNOMED Code(s): 321563692 (6) DVT prophylaxis Current Visit: Yes Status: Acute Code(s): ECY8757 - SNOMED Code(s): 886795417 Comment: - Lovenox Status and Disposition: Inpatient for pacemaker placement with long pauses and unacceptable risk of discharge.
[2018-05-01] MEDS: Enoxaparin(*) 80 MG/0.8 ML SYR SUBCUT SCH (21:03)
[2018-05-02] MEDS ORDERED: Diltiazem IV* 5 MG/ML 5 ML VIAL (for loading dose/IV Push) (25 MG) IV SLOW PU ONE (04:20)
[2018-05-02] MEDS: Enoxaparin(*) 80 MG/0.8 ML SYR SUBCUT SCH (08:45)
--- NOTE | 2018-05-02 17:17 | PN ---
Subjective Date of Service: 05/02/18 Interval History: Patient seen and examined. Denies chest pain, no SOB and no palpitations. Remains irregular on tele. Discussed plan for pacemaker tomorrow at length. Patient in agreement with plan. No further complaints. Family History: Unchanged from Admission Social History: Unchanged from Admission Past Medical History: Unchanged from Admission Objective Active Medications: Acetaminophen (Tylenol Tab*) 650 mg PO Q4H PRN PRN Reason: FEVER/PAIN Last Admin: 05/02/18 11:55 Dose: 650 mg Cefazolin Sodium (Kefzol 2 Gm In Ns Premix(*)) 2 gm in 100 mls @ 200 mls/hr IVPB ONCE ONE Stop: 05/03/18 11:29 Sodium Chloride (Ns 0.9% 1000 Ml) 1,000 mls @ 100 mls/hr IV PER RATE [facility] Stop: 05/03/18 16:00 Naproxen (Naprosyn Tab*) 250 mg PO Q12H PRN PRN Reason: HEADACHE/PAIN Oxygen Devices in Use Now: None Appearance: alert, NAD Eyes: No Scleral Icterus, PERRLA Ears/Nose/Mouth/Throat: NL Teeth, Lips, Gums Neck: NL Appearance and Movements; NL JVP, Trachea Midline Respiratory: Symmetrical Chest Expansion and Respiratory Effort, Clear to Auscultation Cardiovascular: NL Sounds; No Murmurs; No JVD, - - irregular - tachy/walter rhythm Abdominal: NL Sounds; No Tenderness; No Distention, No Hepatosplenomegaly Extremities: No Edema, No Clubbing, Cyanosis Skin: No Rash or Ulcers Neurological: Alert and Oriented x 3, NL Gait Nutrition: Taking PO's Result Diagrams: 05/01/18 05:47 05/01/18 05:47 Assess/Plan/Problems-Billing Assessment: Patient is a 77yo male with a PMH for SSS, Afib, prostate cancer with prostatectomy and DIVINE who has been having presyncope in association with what were found to be pauses on holter who is admitted with Afib with RVR which was spontaneously converted to sinus bradycardia and is awaiting pacemaker placement when available. - Patient Problems (1) SSS (sick sinus syndrome) Code(s): I49.5 - SICK SINUS SYNDROME SNOMED Code(s): 14026765 Comment: - With up to 8 second pauses, was in afib with RVR as well - Pacemaker tomorrow (2) Atrial fibrillation Code(s): I48.91 - UNSPECIFIED ATRIAL FIBRILLATION SNOMED Code(s): 28626358 Comment: - PAF with failed Cardioversion, now irregular/walter - Hold lovenox for procedure/PM insertion - Cardiology following (3) DIVINE (obstructive sleep apnea) Code(s): G47.33 - OBSTRUCTIVE SLEEP APNEA (ADULT) (PEDIATRIC) SNOMED Code(s): 32787179 Comment: - Continue home CPAP (4) DVT prophylaxis Code(s): [id number] - SNOMED Code(s): 376092149 Comment: - SCD's lovenox on hold for procedure (5) Full code status Code(s): Z78.9 - OTHER SPECIFIED HEALTH STATUS SNOMED Code(s): 351530176 Status and Disposition: Inpatient for pacemaker placement with long pauses and unacceptable risk of discharge. Likely DC after insertion tomorrow.
[2018-05-03] MEDS ORDERED: NS 0.9% 1000 ML** 1,000 ML IV SCH (06:00)
[2018-05-03] MEDS ORDERED: ceFAZolin 2 GM in NS PREMIX(*) 2 GM/100 ML BAG IVPB ONE (11:00)
[2018-05-03] MEDS ORDERED: Lidocaine 1% INJ* 10 MG/ML 30 ML SDV ONE (12:28)
[2018-05-03] MEDS ORDERED: Naloxone* 0.4 MG/ML 1 ML VIAL ONE (12:28)
[2018-05-03] MEDS ORDERED: Flumazenil* 0.1 MG/ML 5 ML MDV ONE (12:28)
[2018-05-03] MEDS ORDERED: fentaNYL* 50 MCG/ML 2 ML VIAL (100 MCG VIAL) ONE (12:28)
[2018-05-03] MEDS ORDERED: Midazolam* 1 MG/ML 5 ML VIAL (5 MG) ONE ×2 (12:28→13:42)
[2018-05-03] MEDS ORDERED: Iohexol 300* (CONTRAST) 10 ML SDV ONE (12:29)
[2018-05-03] MEDS ORDERED: ceFAZolin VIAL(*) 1 GM in NS 0.9% 50 ML* 50 ML IVPB SCH (15:00)
--- NOTE | 2018-05-03 17:40 | PN ---
Subjective Date of Service: 05/03/18 Interval History: Patient seen and examined. Ready for PM insertion today. Denies fever or chills , no chest pain, no SOB and no palpitations. at bedside. Family History: Unchanged from Admission Social History: Unchanged from Admission Past Medical History: Unchanged from Admission Objective Active Medications: Acetaminophen (Tylenol Tab*) 650 mg PO Q4H PRN PRN Reason: FEVER/PAIN Last Admin: 05/02/18 11:55 Dose: 650 mg Cefazolin Sodium 1 gm/ Sodium (Chloride) 50 mls @ 200 mls/hr IVPB Q8H [facility] Stop: 05/04/18 11:44 Naproxen (Naprosyn Tab*) 250 mg PO Q12H PRN PRN Reason: HEADACHE/PAIN Vital Signs - 8 hr 05/03/18 05/03/18 05/03/18 11:52 15:00 15:23 Temperature 97.9 F 97.2 F Pulse Rate 73 59 68 Respiratory 20 16 Rate Blood Pressure 140/71 120/64 118/66 (mmHg) O2 Sat by Pulse 95 93 Oximetry 05/03/18 05/03/18 05/03/18 15:30 16:00 16:57 Temperature Pulse Rate 63 64 60 Respiratory Rate Blood Pressure 122/68 128/65 (mmHg) O2 Sat by Pulse Oximetry Oxygen Devices in Use Now: None Appearance: alert, NAD Eyes: No Scleral Icterus, PERRLA Ears/Nose/Mouth/Throat: NL Teeth, Lips, Gums, Mucous Membranes Moist Neck: NL Appearance and Movements; NL JVP, Trachea Midline Respiratory: Symmetrical Chest Expansion and Respiratory Effort, Clear to Auscultation Cardiovascular: NL Sounds; No Murmurs; No JVD, RRR, No Edema Abdominal: NL Sounds; No Tenderness; No Distention, No Hepatosplenomegaly Extremities: No Edema Skin: No Rash or Ulcers Neurological: Alert and Oriented x 3, NL Gait Nutrition: - - NPO for procedure Result Diagrams: 05/01/18 05:47 05/01/18 05:47 Assess/Plan/Problems-Billing Assessment: Patient is a 77yo male with a PMH for SSS, Afib, prostate cancer with prostatectomy and DIVINE who has been having presyncope in association with pauses on holter and admitted with Afib with RVR which was spontaneously converted to sinus bradycardia, plan for pacemaker placement today. - Patient Problems (1) SSS (sick sinus syndrome) Code(s): I49.5 - SICK SINUS SYNDROME SNOMED Code(s): 72072319 Comment: - With up to 8 second pauses, was in afib with RVR as well - POD0 pacemaker insertion today (2) Atrial fibrillation Code(s): I48.91 - UNSPECIFIED ATRIAL FIBRILLATION SNOMED Code(s): 20291747 Comment: - PAF with failed Cardioversion, now irregular/walter - Hold lovenox for procedure/PM insertion - Cardiology following (3) DIVINE (obstructive sleep apnea) Code(s): G47.33 - OBSTRUCTIVE SLEEP APNEA (ADULT) (PEDIATRIC) SNOMED Code(s): 01813860 Comment: - Continue home CPAP (4) DVT prophylaxis Code(s): UEH3603 - SNOMED Code(s): 493412201 Comment: - SCD's lovenox on hold for procedure (5) Full code status Code(s): Z78.9 - OTHER SPECIFIED HEALTH STATUS SNOMED Code(s): 390574829 Status and Disposition: Inpatient, dispo to home tomorrow when clear by cardiology.
--- NOTE | 2018-05-03 18:58 | PN ---
Subjective Date of Service: 05/03/18 - CC: palpitations, dizzy s/p pacer implantation Interval History: The patient continues to have afib w/sleep. Today in sinus rhythm, no new c/o. The patient underwent dual chamber pacemaker implantation this AM and other than mild soreness in the left shoulder is feeling well now. Medications Active Medications: Acetaminophen (Tylenol Tab*) 650 mg PO Q4H PRN PRN Reason: FEVER/PAIN Last Admin: 05/02/18 11:55 Dose: 650 mg Cefazolin Sodium 1 gm/ Sodium (Chloride) 50 mls @ 200 mls/hr IVPB Q8H [facility] Stop: 05/04/18 11:44 Naproxen (Naprosyn Tab*) 250 mg PO Q12H PRN PRN Reason: HEADACHE/PAIN Objective Vital Signs: Temp Pulse Resp BP Pulse Ox 97.2 F 60 16 128/65 93 05/03/18 15:00 05/03/18 16:57 05/03/18 15:00 05/03/18 16:57 05/03/18 15:00 Oxygen Devices in Use Now: None Appearance: Fit, sitting in bed, NAD, shoulder immobilizer on. Eyes: No Scleral Icterus, PERRLA Ears/Nose/Mouth/Throat: NL Teeth, Lips, Gums, Clear Oropharnyx, Mucous Membranes Moist Neck: NL Appearance and Movements; NL JVP, Trachea Midline Respiratory: Symmetrical Chest Expansion and Respiratory Effort, Clear to Auscultation Cardiovascular: NL Sounds; No Murmurs; No JVD, RRR, No Edema Abdominal: NL Sounds; No Tenderness; No Distention Extremities: No Edema Skin: No Rash or Ulcers - Pacer site left no ecchymosis or hematoma. Neurological: Alert and Oriented x 3 Laboratory Results: 05/01/18 05:47 05/01/18 05:47 INR (Anticoag Therapy) 0.91 (0.77-1.02) 04/29/18 19:53 APTT 56.5 seconds (26.0-36.3) H 05/01/18 05:47 Total Bilirubin 0.70 mg/dL (0.2-1.0) 04/29/18 19:53 AST 27 U/L (13-39) 04/29/18 19:53 ALT 22 U/L (7-52) 04/29/18 19:53 Alkaline Phosphatase 49 U/L (34-104) 04/29/18 19:53 Total Protein 7.2 g/dL (6.4-8.9) 04/29/18 19:53 Albumin 4.5 g/dL (3.2-5.2) 04/29/18 19:53 Globulin 2.7 g/dL (2-4) 04/29/18 19:53 Albumin/Globulin Ratio 1.7 (1-3) 04/29/18 19:53 TSH 2.55 mcIU/mL (0.34-5.60) 04/29/18 19:53 04/29/18 19:53 Troponin I 0.03 Diagnostic Imaging: CXR today 05/03/18 post pacer: No pneumothorax, good lead placement. EKG Data: 05/03/2018: NSR 60 bpm Assessment/Plan Patient with paroxysmal afib, tachybrady with up to 8 second pauses on Holter monitor now s/p dual chamber pacer today. No complications and feeling well. PAF: Will start NOAC at discharge. Will initiate antiarrhythmic, coordinating with his regular medical biller Dr Best. Evaluation for CPAP/DIVINE scheduled. The patient is going to cut down alcohol intake vs. stop for now. Pacer: Needs wound check 1 week with me. Needs pacer interogation and f/u with Dr Best in 4-6 weeks.
[2018-05-03] MEDS: Metoprolol Succinate XL TAB* 25 MG PO SCH (19:52)
[2018-05-03] MEDS: ceFAZolin 1 GM* X 3 DOSES POST-OP Q8H (AddVan) IVPB SCH ×2 (19:53)
[2018-05-03] MEDS ORDERED: oxyCODONE TAB* 5 MG TAB PO ONE (22:17)
[2018-05-04] MEDS ORDERED: oxyCODONE TAB* 5 MG TAB PO ONE (03:37)
[2018-05-04] MEDS: ceFAZolin 1 GM* X 3 DOSES POST-OP Q8H (AddVan) IVPB SCH ×4 (03:58→10:47)
[2018-05-04 07:35] VITALS: BP 119/62
[2018-05-04] MEDS: Metoprolol Succinate XL TAB* 25 MG PO SCH (08:02)
--- NOTE | 2018-05-04 09:14 | PN ---
Subjective Date of Service: 05/04/18 - CC: PAF, tachy walter Interval History: Pacer A pacing 62%, 1 minute afib overnight. No new c/o. Medications Active Medications: Acetaminophen (Tylenol Tab*) 650 mg PO Q4H PRN PRN Reason: FEVER/PAIN Last Admin: 05/02/18 11:55 Dose: 650 mg Cefazolin Sodium 1 gm/ Sodium (Chloride) 50 mls @ 200 mls/hr IVPB Q8H [facility] Stop: 05/04/18 11:44 Last Admin: 05/04/18 03:58 Dose: 200 mls/hr Metoprolol Succinate (Toprol Xl Tab*) 25 mg PO DAILY [facility] Last Admin: 05/04/18 08:02 Dose: 25 mg Naproxen (Naprosyn Tab*) 250 mg PO Q12H PRN PRN Reason: HEADACHE/PAIN Objective Vital Signs: Temp Pulse Resp BP Pulse Ox 97.6 F 59 18 119/62 97 05/04/18 07:28 05/04/18 07:28 05/04/18 08:00 05/04/18 07:28 05/04/18 07:28 Oxygen Devices in Use Now: None Appearance: Fit, sitting in bed, NAD, shoulder immobilizer on. Eyes: No Scleral Icterus, PERRLA Ears/Nose/Mouth/Throat: NL Teeth, Lips, Gums, Clear Oropharnyx, Mucous Membranes Moist Neck: NL Appearance and Movements; NL JVP, Trachea Midline Respiratory: Symmetrical Chest Expansion and Respiratory Effort, Clear to Auscultation Cardiovascular: RRR - diastolic murmur heard., No Edema Abdominal: NL Sounds; No Tenderness; No Distention Extremities: No Edema Skin: No Rash or Ulcers - Pacer site left no ecchymosis or hematoma. Neurological: Alert and Oriented x 3 Laboratory Results: 05/01/18 05:47 05/01/18 05:47 INR (Anticoag Therapy) 0.91 (0.77-1.02) 04/29/18 19:53 APTT 56.5 seconds (26.0-36.3) H 05/01/18 05:47 Total Bilirubin 0.70 mg/dL (0.2-1.0) 04/29/18 19:53 AST 27 U/L (13-39) 02/23/19 19:53 ALT 22 U/L (7-52) 04/29/18 19:53 Alkaline Phosphatase 49 U/L (34-104) 04/29/18 19:53 Total Protein 7.2 g/dL (6.4-8.9) 04/29/18 19:53 Albumin 4.5 g/dL (3.2-5.2) 04/29/18 19:53 Globulin 2.7 g/dL (2-4) 04/29/18 19:53 Albumin/Globulin Ratio 1.7 (1-3) 04/29/18 19:53 TSH 2.55 mcIU/mL (0.34-5.60) 04/29/18 19:53 04/29/18 19:53 Troponin I 0.03 Diagnostic Imaging: CXR today 05/03/18 post pacer: No pneumothorax, good lead placement. CXR 05/04/18 no pneumthorax, stable lead placement. EKG Data: Pacer check: 62% A pacing. RV pace < 0.1% P wves sensed 1.6 mv, pacing threshold 0.5 v @ 0.4 ms, R waves sensed 6.6 mv, V pacing threshold 0.75v@ 0.4 ms (good and stable). Assessment/Plan Patient with paroxysmal afib, tachybrady with up to 8 second pauses on Holter monitor now s/p dual chamber pacer today. No complications and feeling well. PAF: Recommend start NOAC at discharge-Xarelto 20 mg. Toprol XL 25 mg started yesterday for PAF and thoracic aneurism- continue as outpatient. Nidia programming of pacer could decrease AF burden. Pacer working well. Evaluation for CPAP/DIVINE scheduled outpatient. The patient is going to cut down alcohol intake vs. stop for now. Needs KEFLEX 250 mg TID x 4 days on discharge. pacer instructions added to d/c plan. Pacer: Needs wound check 1 week with ri-scheduled 05/09/18 10:15 AM at [facility] to [facility]) Needs pacer interogation and f/u with Dr Best in 4-6 weeks. Patient requesting Percocet for tenderness.
[2018-05-04] MEDS ORDERED: oxyCODONE/Acetamin 5/325 MG* TAB PO ONE (10:58)
--- NOTE | 2018-05-04 22:30 | DS ---
CC: Jung Oglesby NP; Dr. Foss; Dr. Lisy Mcdonald; Dr. Best * DISCHARGE SUMMARY: DATE OF ADMISSION: 04/30/18 DATE OF DISCHARGE: 05/04/18 PRIMARY CARE PHYSICIAN: Jung Oglesby NP. SYSTEMS COORDINATOR: Dr. Lisy Mcdonald MY ATTENDING PHYSICIAN FOR THIS ADMISSION: Dr. Sheela Miranda * (DICTATED BY LETI TRAVIS NP) HOSPITAL COURSE: Please refer to admission history and physical by Dr. Jones on 04/30/18, however, in short this is a 77-year-old gentleman who was recently diagnosed with sick sinus syndrome, was a on a Holter monitor at home and on his Holter monitor was found to be either in SVT or in atrial fibrillation with an RVR and was sent to the emergency room for evaluation. He failed to repeated cardioversions in the ED and was subsequently admitted for rate control and cardiology consultation. 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 Pacemaker was inserted on the 05/03/18. He had an uneventful postoperative course. Pacemaker wires were noted to be in place on today's chest x- ray and he was subsequently cleared by Cardiology for discharge. REVIEW OF SYSTEMS: On day of discharge, the patient denies any fever, fatigue or chills. He has no chest pain, no shortness of breath. He does complain of pain at the surgical site and an inability to move his left arm secondary to sling on the surgical side. Denies abdominal pain. No nausea, vomiting. No urinary complaints and no further constitutional complaints. PHYSICAL EXAMINATION: On day of discharge, reveals a very well appearing gentleman, younger than his stated age, in no acute distress. Vital Signs: Blood pressure 118/62, heart rate 59, O2 saturation 97% on room air with a respiratory rate of 16 and temperature 97.6. HEENT: The patient is atraumatic , normocephalic. PERRLA with nonicteric sclerae. Oral mucosa is moist. Tongue is midline. Neck: Supple, nontender, no JVD noted, no thyromegaly appreciated. No carotid bruit auscultated. Cardiovascular: S1, S2 present. No murmurs, gallops, or rubs noted. He has paced on telemetry. Lungs: Clear bilaterally to auscultation with no wheezing, rhonchi or rales. Abdomen: Soft, nontender, nondistended. Positive bowel sounds all 4 quadrants. No hepatomegaly noted. : Deferred. Musculoskeletal: There is no clubbing, no cyanosis, no edema. He has +2 distal pulses palpable. Ambulatory with a steady gait. Gross motor and sensation are intact. Neurologic: Grossly intact with no focal deficit. Psychiatric: He is cooperative and appropriate. LABORATORY DATA: WBC is 3.0, RBC 3.75, hemoglobin 13.2, hematocrit 38, platelets 152. Sodium 139, potassium 3.9, chloride 109, CO2 of 24, BUN 18, creatinine 0.90, GFR 82, glucose between 88 and 111. Lactic acid 1.1. Calcium 9.2, magnesium 2.0, bilirubin 0.70, AST 27, ALT 22, alkaline phos 49, troponin was negative at 0.03, total protein 7.2, albumin was 4.5, globulin was 2.7, B12 was 189, folate 19.3 and TSH was 2.55. APTT was 56.5 on the 05/01/18. IMAGING: His postoperative chest x-ray dated 05/04/18, shows pacemaker leads in appropriate position with no acute cardiopulmonary changes. DISCHARGE DIAGNOSES: 1. Sick sinus syndrome, status post pacemaker implantation. 2. Atrial fibrillation with RVR with failed cardioversion, now stable. 3. History of obstructive sleep apnea, on CPAP. DISCHARGE MEDICATIONS: Include : 1. Tylenol 650 mg p.o. q.4 hours as needed. 2. Metoprolol succinate XL 25 mg p.o. daily. 3. Keflex 250 mg p.o. t.i.d. for 3 days. 4. Xarelto 20 mg p.o. daily to start on Tuesday. 5. Percocet 5/325 mg 1 tab q.6 hours p.r.n. pain for 2 days. FOLLOWUP: This patient was instructed to follow up with his primary care provider in the next 1 to 2 weeks. He was also made an appointment with Dr. Lisy Mcdonald for 05/09/18 at 10:15 in the morning. The patient will also have to follow up with Dr. Best in 4 to 6 weeks for pacemaker interrogation. This will be coordinated through cardiology office. ACTIVITY: The patient should wear shoulder immobilizer for 3 to 4 weeks. No heavy lifting. Resume driving after 7 days. WOUND CARE: He is to shower after 48 hours. Leave the Mepilex dressing intact for 48 hours postop and then remove and to contact Cardiology office if he notices any changes in temperature or if he has any swelling, bleeding, redness , exudate from the surgical site. DISPOSITION: Discharged to home in the care of family in stable condition. All questions were answered. The patient stated his understanding of his discharge instructions, new medications and followup. TIME SPENT: Thirty-five minutes interfacing with the patient and the providers on the patient's care. LETI TRAVIS NP [id number]/[facility] #: [id number] JESU
--- NOTE | 2018-05-18 11:47 | OP ---
CC: Dr. Best OPERATIVE REPORT: DATE OF OPERATION: 05/03/18 DATE OF : 42 SURGEON: Lisy Mcdonald MD ANESTHESIA: MAC. PRE-OP DIAGNOSES: 1. Tachy-walter syndrome. 2. Paroxysmal atrial fibrillation. 3. Symptomatic bradycardia. POST-OP DIAGNOSES: 1. Tachy-walter syndrome. 2. Paroxysmal atrial fibrillation. 3. Symptomatic bradycardia. OPERATIVE PROCEDURE: Dual-chamber pacemaker implantation. ESTIMATED BLOOD LOSS: Less than 5 mL. COMPLICATIONS: None. INDICATIONS: The patient was right-handed. The indications, risks and benefits of the procedure wer e discussed with the patient. He was amenable to proceeding. DESCRIPTION OF PROCEDURE: The left subclavian was prepped and draped in the usual sterile fashion. Time-out was called. Throughout the procedure, the patient received a total of 5 mg of Versed and 50 mcg of fentanyl for sedation in addition to 1% lidocaine for local anesthesia. The patient received 10 mL of radiopaque dye in the left upper extremity outlining left axillary and left subclavian vein s. Following this MAC or local anesthesia, 2.5 cm incision was made in the left subclavian fossa and using Bovie and blunt dissection, it was extended to the level of the pectoralis muscle. Additional lidocaine was infused inferiorly and medially and using blunt dissection, a small pocket was fashione d. Using a modified Seldinger technique, the left subclavian vein was cannulated and using fluoroscopic guidance, a guidewire was inserted into the level of the right atrium. This was repeated with a seco nd guidewire. Using an introducer technique, the ventricular lead was guided into the right ventricular apex. Paci ng and sensing thresholds were checked and found to be good and using the second guidewire and anothe r introducer, the atrial lead was guided into the right atrial appendage, actively fixed in place. P acing and sensing thresholds were checked and found to be good. The leads were then sutured to the p ocket. The pocket was copiously irrigated. The leads were attached to the generator. The generator was placed in the pocket. The incision was closed with 2 layers of absorbable suture, 2-0 followed by 4-0, followed by carina and an external dressing. FINDINGS: The system is an MRI compatible [employer] system. The device is [employer]API, model number W 1D01, serial number [id number]. The atrial lead is Medgauzz, model 5076-52, serial number [id number]. The ventricular lead is Medtronic, model 5076-58, serial number [id number]. P-waves are sensed at 1.8 mV with an atrial pacing threshold of 0.4 V at 0.5 milliseconds and the flora d impendence was 675 ohms. R-waves are sensed at 5.8 millivolts with a ventricular pacing threshold of 1.2 V at 0.5 milliseconds and ventricular lead impedance of 991 ohms. The patient was hemodynamically stable throughout the procedure and during the recovery period and ag ain no complications. Estimated blood loss less than 5 cc. [id number]/[facility] #: [id number]
== END 2018-05-04 12:48 | disposition home or self-care (01) | DRG 243 ==
LOC: ED 18:34 → MEDTELE 22:44
PROVIDERS: ADMIT Internal Medicine; ATTEND Hospitalist
PROC: 0JH606Z Insertion of Pacemaker, Dual Chamber into Chest Subcutaneous Tissue and Fascia, Open Approach (ICD-10-PCS; principal; 2018-04-29)
PROC: 02H63JZ Insertion of Pacemaker Lead into Right Atrium, Percutaneous Approach (ICD-10-PCS; 2018-04-29)
PROC: 02HK3JZ Insertion of Pacemaker Lead into Right Ventricle, Percutaneous Approach (ICD-10-PCS; 2018-04-29)
DX: I49.5 Sick sinus syndrome (principal); I47.1 Supraventricular tachycardia; E78.5 Hyperlipidemia, unspecified; I48.91 Unspecified atrial fibrillation; G47.33 Obstructive sleep apnea (adult) (pediatric); Z87.891 Personal history of nicotine dependence; Q25.43 Congenital aneurysm of aorta; Z85.46 Personal history of malignant neoplasm of prostate; Z82.49 Family history of ischemic heart disease and other diseases of the circulatory system; Z90.79 Acquired absence of other genital organ(s)
CPT/HCPCS: 33208; 36415; 71045; 71046; 80048; 80053; 82607; 82746; 83605; 83735; 84443; 84484; 85025; 85610; 85730; 93005; 99156; 99157; 99285; A9270-GY; C1785; C1892; C1898; J0690; J1644; J1650; J2250; J2310; J2704; J3010; J3490